=== PATIENT | female | born 1955 | race Caucasian/White ===

== ENCOUNTER → 2017-05-28 07:27 | Outpatient (CLI) | payer SELFPAY ==
--- NOTE | 2017-05-28 07:31 | HPBI_ITS ---
MAMMOGRAPHY - BILATERAL SCREENING REASON FOR EXAM: Female, 61 years old. Routine annual screening examination. PERTINENT HISTORY: Non-contributory. TECHNIQUE: Digital bilateral breast mauricio (3D mammographic acquisition) in the CC and MLO projections. 2-D mediolateral oblique (MLO) and craniocaudad (CC) views of both breasts were obtained. CAD: Full Field Digital Mammography with Computer Added Detection was performed. COMPARISON: Comparison is made with prior examination dated May 16, 2016. FINDINGS: Breast Composition: There are scattered areas of fibroglandular density. There is a 6.1 mm x 4.9 mm well-defined nodule in the mid deep mid slightly inferior portion of the right breast. Correlation with ultrasound is recommended. No clustered microcalcification is seen. No other significant abnormalities are identified. HPBI/SCREENING MAMM (CAD), BILAT IMPRESSION: 6.1 mm x 4.9 mm well-defined nodule in the deep portion of the right breast as described. Correlation with ultrasound is recommended. ASSESSMENT CATEGORY: BIRADS Category 0: Incomplete. Need additional imaging evaluation. A letter regarding these results will be sent to the patient by the facility within 30 days. Approximately 10% of breast cancers are not detected by mammography. A normal mammogram should not delay biopsy of a clinically suspicious abnormality. [id number] Electronically Signed: Cash Moreno MD at 10:56 EDT Tel [phone], Service support ,
== END ==
PROVIDERS: Family Provider Family Medicine; PCP Family Medicine; Visit Provider Family Medicine
DX: Z12.31 Encounter for screening mammogram for malignant neoplasm of breast (principal)
CPT/HCPCS: 77063; 77067

== ENCOUNTER → 2017-05-31 09:49 | Outpatient (CLI) | payer SELFPAY ==
--- NOTE | 2017-05-31 09:54 | US_ITS ---
STUDY: ULTRASOUND BREAST - RIGHT REASON FOR EXAM: Female, 61 years old. Abnormal screening mammogram. TECHNIQUE: Axial and longitudinal images of the RIGHT breast were performed with a high resolution ultrasound transducer. COMPARISON: Comparison is made with prior mammogram dated May 28, 2017. FINDINGS: RIGHT Breast: The entire right breast was examined by ultrasound. There is homogeneous fibroglandular tissue. No solid or cystic mass lesion is seen. Mild degree of the retroareolar ductal dilatation. Additional mammographic views will be obtained. US/Breast Limited Unilateral IMPRESSION: Unremarkable sonographic examination of the breast. Additional mammographic views will be obtained. ASSESSMENT CATEGORY: BIRADS Category 0: Incomplete. Need additional imaging evaluation. A letter regarding these results will be sent to the patient by the facility within 30 days. Electronically Signed: Cash Moreno MD at 10:58 EDT Tel [phone], Service support ,
--- NOTE | 2017-05-31 10:23 | HPBI_ITS ---
MAMMOGRAPHY - UNILATERAL DIAGNOSTIC: RIGHT BREAST REASON FOR EXAM: Female, 61 years old. Questionable asymmetrical density in the right breast. PERTINENT HISTORY: Non-contributory. TECHNIQUE: Compression spot views of the right breast in the mediolateral oblique and craniocaudad views were obtained. 90 degree lateral view was obtained as well. CAD: Full Field Digital Mammography with Computer Added Detection was performed. COMPARISON: Comparison is made with prior study dated May 28, 2017. FINDINGS: The previously seen possible nodular density in the right mid breast most likely represents superimposition of tissue. No definite nodule is seen at this time. HPBI/DIAG MAMM W/CAD, UNILAT IMPRESSION: Stable unilateral diagnostic mammogram. One year follow-up mammogram recommended. (A) ASSESSMENT CATEGORY: BIRADS Category 2: Benign. A letter regarding these results will be sent to the patient by the facility within 30 days. Approximately 10% of breast cancers are not detected by mammography. A normal mammogram should not delay biopsy of a clinically suspicious abnormality. Electronically Signed: Cash Moreno MD at 15:55 EDT Tel [phone], Service support ,
== END ==
PROVIDERS: Family Provider Family Medicine; PCP Family Medicine; Visit Provider Family Medicine
DX: N63.0 Unspecified lump in unspecified breast (principal)
CPT/HCPCS: 76642; 77065

== ENCOUNTER → 2018-01-14 16:13 | Outpatient (CLI) | payer SELFPAY ==
[2018-01-18 12:30] LABS: HPV APTIMA, High Risk Negative (Negative)
== END ==
LOC: LAB 16:16 → LABSPEC 16:16
PROVIDERS: Family Provider Family Medicine; PCP Family Medicine; Referring Provider Nurse Practitioner Women's Health; Visit Provider Nurse Practitioner Women's Health
DX: Z12.4 Encounter for screening for malignant neoplasm of cervix (principal)
CPT/HCPCS: 87624; 88175; G0145

== ENCOUNTER → 2018-06-17 08:05 | Outpatient (CLI) | payer SELFPAY ==
--- NOTE | 2018-06-17 08:14 | BI_ITS ---
MAMMOGRAPHY - BILATERAL SCREENING REASON FOR EXAM: Female, 62 years old. Routine annual screening examination. PERTINENT HISTORY: Non-contributory. TECHNIQUE: Digital bilateral breast harriet (3D mammographic acquisition) in the CC and MLO projections. 2-D mediolateral oblique (MLO) and craniocaudad (CC) views of both breasts were obtained. CAD: Full Field Digital Mammography with Computer Added Detection was performed. COMPARISON: Comparison is made with prior examination dated October 28, 2017 and May 16, 2016. FINDINGS: Breast Composition: There are scattered areas of fibroglandular density. Once again, there is a 5 mm x 6 mm well-defined nodule in the central slightly inferior deep portion of the right breast. On prior sonogram this was not well visualized. A repeat sonogram is recommended for further evaluation. No other significant abnormalities are identified. There has been no significant change since the prior study. BI/SCREEN MAMM (CAD) W/HARRIET BILAT IMPRESSION: Stable subcentimeter nodule in the right breast as described. Correlation with a repeat ultrasound is recommended. ASSESSMENT CATEGORY: BIRADS Category 0: Incomplete. Need additional imaging evaluation. A letter regarding these results will be sent to the patient by the facility within 30 days. Approximately 10% of breast cancers are not detected by mammography. A normal mammogram should not delay biopsy of a clinically suspicious abnormality. [id number] Electronically Signed: Cash Moreno, at 9:24 EDT , Service support ,
--- NOTE | 2018-06-17 15:20 | US_ITS ---
STUDY: ULTRASOUND BREAST - RIGHT REASON FOR EXAM: Female, 62 years old. Abnormal screening mammogram. TECHNIQUE: Axial and longitudinal images of the RIGHT breast were performed with a high resolution ultrasound transducer. COMPARISON: Comparison is made with prior screening mammogram done earlier in the day. Comparison is also made with prior sonogram of the right breast dated May 31, 2017. FINDINGS: RIGHT Breast: The entire lateral aspect of the right breast was examined by ultrasound. There is evidence of dilated ducts. Additional mammographic views of the right breast will be obtained. US/Breast Limited Unilateral IMPRESSION: Dilated retroareolar ducts. Compression mammographic views of the right breast will be obtained. ASSESSMENT CATEGORY: BIRADS Category 0: Incomplete. Need additional imaging evaluation. A letter regarding these results will be sent to the patient by the facility within 30 days. Electronically Signed: Cash Moreno, at 8:39 EDT , Service support ,
--- NOTE | 2018-06-17 15:42 | BI_ITS ---
MAMMOGRAPHY - UNILATERAL DIAGNOSTIC: RIGHT BREAST REASON FOR EXAM: Female, 62 years old. Nodular density in the right breast. PERTINENT HISTORY: Non-contributory. TECHNIQUE: Compression spot views of the right breast nodule were obtained. CAD: Full Field Digital Mammography with Computer Added Detection was performed. COMPARISON: Comparison is made with prior mammogram and prior ultrasound in earlier in the day. FINDINGS: Breast Composition: There are scattered areas of fibroglandular density. Persistent 5 mm x 6 mm well-defined nodule in the central slightly inferior aspect of the right breast. This was not identified on the ultrasound. A biopsy is recommended for further evaluation. No other significant abnormalities are identified. BI/DIAG MAMM W/CAD, UNILAT IMPRESSION: Persistent 5 mm x 6 mm well-defined nodule in the central slightly inferior portion of the right breast as described. A biopsy is recommended. ASSESSMENT CATEGORY: BIRADS Category 4: Suspicious - Biopsy Should Be Considered. A letter regarding these results will be sent to the patient by the facility within 30 days. Approximately 10% of breast cancers are not detected by mammography. A normal mammogram should not delay biopsy of a clinically suspicious abnormality. Electronically Signed: Cash Moreno, at 10:34 EDT , Service support ,
== END ==
PROVIDERS: Family Provider Family Medicine; PCP Family Medicine; Referring Provider Nurse Practitioner Women's Health; Visit Provider Nurse Practitioner Women's Health
DX: Z12.31 Encounter for screening mammogram for malignant neoplasm of breast (principal); R92.8 Other abnormal and inconclusive findings on diagnostic imaging of breast
CPT/HCPCS: 76642; 77063; 77065; 77067

== ENCOUNTER → 2018-07-18 | Outpatient (CLI) | payer SELFPAY ==
[2018-06-27 13:10] VITALS: BMI 28.3
--- NOTE | 2018-07-18 08:15 | BRBX_PTH ---
PATIENT: EZEKIEL BLANC LOC: [facility] U#:[id number] AGE/SX: 62/F ROOM: RE07/18/[address]: Dr. Miguel Magallanes MD : 1955 BED: DIS: 07/18/2018 SPEC #: [id number] RECD: 07/18/18 08:59 STATUS: OTIS HAILEY #: [id number] ADELINE: 07/18/18 08:[address]: Miguel Magallanes DEPT: SURGICAL PATHOLOGY RECD BY: Shai Betancourt ENTERED: 07/18/18 11:27 SP TYPE: BREAST BX OTHR DR: Dr. Doug Mcmullen, Tissues: Right breast, NOS Procedures: Surgery Specimen Level IV HEADER OPERATION: Right breast stereotactic biopsy PRE-OP DIAGNOSIS: Right breast mass central slightly inferior TISSUE SUBMITTED: Right breast core tissue ISCHEMIC TIME: 1 minute FIXATION TIME: 11 hours MICROSCOPIC DIAGNOSIS Right breast mass, stereotactic core biopsy: Hyalinized fibroadenoma. Negative for atypia or malignancy. NATIVIDAD:eusebio 07/19/18 MICROSCOPIC DESCRIPTION Slides are reviewed. GROSS DESCRIPTION Received is one container labeled with the patient's name and not further designated. The specimen consists of multiple elongated fragments of scruggs-yellow fibroadipose tissue that in aggregate measure 4 x 3 x 0.3 cm. The entire specimen is submitted in two cassettes. / NATIVIDAD:eusebio 07/18/18 TC:1 CPT: 63616
--- NOTE | 2018-07-18 09:05 | PCM.OPRPT ---
Problem List (1) Breast mass, right Status: Acute Report of Operation Date of Procedure: 07/18/18 Pre-Operative Diagnosis: Right breast nodule Post-Operative Diagnosis: Same Surgery/Procedure Performed:: Stereotactic guided right breast core needle biopsy placement of clip Specimen's removed: Right breast biopsy Description of Procedure: The patient was placed on the stereotactic table and the right breast was brought through the opening. The right breast was compressed and images were taken in the lesion was localized. Stereotactic images were taken and the coordinates were placed into the computer. Next the breast was prepped with Betadine and anesthetized with lidocaine. A small kiet was made with a scalpel and an 8 gauge mammotome needle was placed into the breast and deployed. Stereotactic images were obtained and then biopsies were obtained. Next a titanium clip was placed into the biopsy cavity and the needle was removed. Pressure was held in the breast and a Steri-Strip and bandage were placed in the breast and patient was supplied with a ice pack. Patient tolerated the biopsy well.
== END | disposition home or self-care (01) ==
PROVIDERS: Family Provider Family Medicine; PCP Family Medicine; Referring Provider Surgery; Visit Provider Surgery
DX: D24.1 Benign neoplasm of right breast (principal); I10 Essential (primary) hypertension; Z79.899 Other long term (current) drug therapy
CPT/HCPCS: 19081; 88305; J7050; A4648

== ENCOUNTER → 2019-08-14 08:00 | Outpatient (CLI) | payer MEDICARE, OTHER, SELFPAY ==
[2019-01-15 08:13] VITALS: BMI 28.3
--- NOTE | 2019-08-14 08:02 | BI_ITS ---
MAMMOGRAPHY - BILATERAL SCREENING REASON FOR EXAM: Female, 63 years old. Routine annual screening examination. PERTINENT HISTORY: Non-contributory. Prior right stereotactic breast biopsy. TECHNIQUE: Digital bilateral breast harriet (3D mammographic acquisition) in the CC and MLO projections. 2-D mediolateral oblique (MLO) and craniocaudad (CC) views of both breasts were obtained. CAD: Full Field Digital Mammography with Computer Added Detection was performed. COMPARISON: Comparison is made with prior examination dated June 17, 2018 and May 31, 2017. FINDINGS: Breast Composition: There are scattered areas of fibroglandular density. There are no dominant masses or suspicious calcifications. The previously seen well-defined nodule in the central slightly inferior deep portion of the right breast is not seen at this time. A tissue clip marker is seen at that site. No other significant abnormalities are identified. BI/SCREEN MAMM (CAD) W/HARRIET BILAT IMPRESSION: Status post right breast biopsy with resolution of the subcentimeter nodule in the right breast as described. Yearly follow-up mammogram recommended. (A) ASSESSMENT CATEGORY: BIRADS Category 2: Benign. A letter regarding these results will be sent to the patient by the facility within 30 days. Approximately 10% of breast cancers are not detected by mammography. A normal mammogram should not delay biopsy of a clinically suspicious abnormality. [id number] Electronically Signed: Cash Moreno, at 9:17 EDT , Service support ,
--- OUTSIDE RECORDS SUMMARY | 2019-12-30 18:21 | XMS RPT_ITS | CCD ---
:1955 External Reference #:[id number] Author Organization [facility] Care Team Providers Name Role Phone Osorio, N Unavailable Osorio, N Unavailable Jeanine Otero Unavailable Osorio, N Unavailable Osorio, N Unavailable Osorio, N Unavailable Jeanine Otero Unavailable Osorio, N Unavailable Allergies Reported Allergen Reaction(s) Severity Date of Onset Location penicillin v Critical, Critical [facility] (4 0777) sulfADIAZINE Critical, Critical [facility] (4 7110) Medications Medication Name Sig Date Prescriber Location Metoprolol TOPROL XL 50 MG 10-03-2016 [facility] [id number] daily Sports Medic ine and METOPROLOL Orthop aedics (19215) SUCCINATE [id number] Jessica Otero TOPROL XL 50 MG [id number] daily 10-03-2016 [facility] Sports Medicine METOPROLOL SUCCINATE and Orthopaedics (88357) [id number] Jessica Otero Problems Active Problems Category Problem Name Status Date Location Unclassified Postoperative physical Active 10-24-2016 [facility] Sports examination Medicine and Or thopaedics (41675) Past or Other Problems Category Problem Name Status Date Location Fracture of upper Displaced fracture of Completed 10-03-2016 [facility] limb unspecified ulna Sports Medi cine and styloid process, Orthopaedic s (77698) initial encounter for closed fracture Other aftercare Encounter for other Completed 10-24-2016 [facility] specified surgical Sports Me dicine and aftercare Orthopaedics (4 8143) Other non-traumatic Pain in wrist Completed 10-24-2016 [facility] [place] joint disorders Sports Medic ine and Orthopaedics (4 4207) Results Result Name Value Range Unit Interpretation Flag Date Location office visit on 09-25-16 Documentation of Done Invalid 01-02-2017 - [facility] current medications Interpretation Code 01-02-2017 [place] [facility] (procedure) Medicine and Orthopaedi cs (80591) Protein mass conc Done Invalid 01-02-2017 - [facility] Interpretation Code 01-02-2017 [place] [facility] a [facility] Orthopa[facility] cs (75054) Tobacco smoking Never Invalid 01-02-2017 - [facility] status NHIS smoker Interpretation Code 01-03-20 [place] [facility] a [facility] Orthopa[facility] cs (68974) Tobacco use CPHS Never Invalid 01-02-2017 - [facility] smoker Interpretation Code 01-02-2017 [place] [facility]opa[facility] (85945) office visit on 09-24-04 Documentation of Done Invalid 11-21-2016 - [facility] current medications Interpretation Code 11-21-2016 [place] [facility] (procedure) Medicine and Orthopaedi cs (55782) Protein mass conc Done 11-21-2016 - [facility] 11-21-2016 [place] [facility] or[facility] Medicine a nd Orthopaedi cs (43559) Tobacco smoking Never 11-21-2016 - [facility] status NHIS smoker 11-21-2016 [place] [facility] Orthopa[facility] (01105) Tobacco use CPHS Never Invalid 11-21-2016 - [facility] smoker Interpretation Code 11-21-2016 [place] [facility] Orthopa[facility] cs (30557) office visit on 201 09-24-07 Documentation of Done Invalid 10-24-2016 - [facility] current medications Interpretation Code 10-24-2016 [place] [facility] (procedure) Medicine and Orthopaedi cs (62799) Protein mass conc Done 10-24-2016 - [facility] 10-24-2016 [place] [facility] Medicine a nd Orthopaedi cs (52168) Tobacco smoking Never 10-24-2016 - [facility] status NHIS smoker 10-24-2016 [place] [facility] Orthopa[facility] (80464) Tobacco use CPHS Never Invalid 10-24-2016 - [facility] smoker Interpretation Code 10-24-2016 [place] [facility] a [facility] Orthopaedi cs (98932) office visit on 09-22-17 Documentation of Done Invalid 10-03-2016 [facility] Medical current medications Interpretation Code 10-03-2016 [place] [facility] (procedure) Medicine and Orthopaedi cs (30679) Protein mass conc Done 10-03-2016 - [facility] 10-03-2016 [place] Sp orts Medicine a nd Orthopaedi cs (01841) Tobacco smoking Never 10-03-2016 - [facility] status NHIS smoker 10-03-2016 [place] [facility] a [facility] Orthopaedi cs (23630) Tobacco use CPHS Never Invalid 10-03-2016 [facility] Medical smoker Interpretation Code 10-03-2016 [place] [facility] Medicine a nd Orthopaedi cs (68466) Vital Signs Vital Sign Description Value / Unit Date Location The following section is limited to 5 en tries per type and includes entries from the following time range: 20161003 - [id number] 8. BMI (Body Mass Index) 28.69 kg/m2 10-03-2016 - 10-03-2016 [facility] Sports Medicine and Ort hopaedics (04276) Height 160.02 cm 10-03-2016 - 10-03-2016 [facility] Sports Medicine and Ort hopaedics (23672) Weight 73.48 kg 10-03-2016 - 10-03-2016 [facility] Sports Medicine and Ort hopaedics (30729) Plan of Treatment Plan Description Date Location Appointment Appointment 01-12-2017 - [facility] er 01-12-2017 Sports Medicine and Orthopaedics (44 691) Appointment Appointment 01-02-2017 - [facility] er 01-02-2017 Sports Medicine and Orthopaedics (44 691) Appointment Appointment 11-21-2016 - [facility] er 11-21-2016 Sports Medicine and Orthopaedics (44 691) Occupational Therapy no information 11-08-2016 [facility] General Rehab Services, 11-08-2016 Sports M edicine and [facility], Orthopae dics ([address]) [place], [address] Occupational Therapy Occupational Therapy 11-08-2016 [facility] General Re[facility], General Rehab Services, 11-08-2016 Sports Medicine and [address] [facility], Orthopaedics ([address]) [place], [address] [place], [address] + + X-Ray, Wrist X-Ray, Wrist 10-24-2016 - [facility] 10-24-2016 Sports Medicine and Orthopaedics (44 691) Appointment Appointment 10-24-2016 - [facility] 10-24-2016 Sports Medicine and Orthopaedics (44 691) X-Ray, Wrist X-Ray, Wrist 10-24-2016 - [facility] 10-24-2016 Sports Medicine and Orthopaedics (44 691) Appointment Appointment 10-03-2016 - [facility] 10-03-2016 Sports Medicine and Orthopaedics (44 691) Additional Source Comments FOR RECORDS PERTAINING TO PATIENTS WHO ARE OR HAVE BEEN ENROLLED IN A CHEMICAL DEPENDENCY/SUBSTANCE ABUSE PROGRAM, SOME INFORMATION MAY BE OMITTED. This clinical summary was aggregated from multiple sources. Caution should be exercised in using it in the provision of clinical care. This summary normalizes information from multiple sources, and as a consequence, information in this document may materially changethe coding, format and clinical context of patient data. In addition, data may be omittedin some cases. CLINICAL DECISIONS SHOULD BE BASED ON THE PRIMARY CLINICAL RECORDS. [facility] provides no warranty or guarantee of the accuracy or completeness of information in this document.
== END ==
PROVIDERS: PCP Family Medicine; Referring Provider Nurse Practitioner Women's Health; Visit Provider Nurse Practitioner Women's Health
DX: Z12.31 Encounter for screening mammogram for malignant neoplasm of breast (principal)
CPT/HCPCS: 77063; 77067

== ENCOUNTER → 2019-09-15 08:19 | Outpatient (CLI) | payer MEDICARE, OTHER, SELFPAY ==
[2019-01-15 08:13] VITALS: BMI 28.3
[2019-09-15 09:55] LABS: Absolute Lymphocyte Count 1.72 X10^3/uL (0.83-4.51); Absolute Neutrophil Count 4.2 X10^3/uL (2.0-7.7); Basophil# 0.06 X10^3/uL; Basophil% 0.9 % (0-1); Eosinophil# 0.26 X10^3/uL; Eosinophils% 3.9 % (0-5); Hemoglobin 14.2 g/dL (12.0-15.0); Lymphocyte # 1.72 X10^3/ul (4.0); Lymphocyte % 25.6 % (19-41); Mean Corp Hgb Conc 31.6 g/dL (32-36); Mean Corpuscular Hgb 28.7 pg (27.0-32.0); Mean Corpuscular Volume 90.9 fL (81-99); Mean Platelet Vol. 10.6 fl (6.2-12.0); Monocyte# 0.46 X10^3/uL; Monocyte% 6.8 % (0-10); NRBC Flagged by Analyzer 0 % (0-5); Neutrophil # 4.21 X10^3/uL (2.7-7.7); Neutrophil % 62.7 % (47-70); Platelet Count 207 K/mm3 (150-450); RBC Distribution Width SD 42.4 fl (35.1-43.9); Red Blood Count 4.95 M/mm3 (4.2-5.4); White Blood Count 6.7 K/mm3 (4.4-11.0)
[2019-09-15 10:13] LABS: ALB/GLOB Ratio 1.1 RATIO (0.9-2.4); AST(SGOT) 18 U/L (15-37); Alanine Aminotransfer ALT/SGPT 20 U/L (13-56); Albumin, Serum 3.8 g/dL (3.2-5.0); Alkaline Phosphatase 89 U/L (45-117); Anion Gap 5 (5-15); BUN 9 mg/dL (7-18); BUN/Creat Ratio 14.5 RATIO (10-20); Chloride 105 mmol/L (98-107); Cholesterol 239 mg/dL (200); Creatinine, Serum 0.62 mg/dL (0.55-1.02); EST Glomerular Filtration Rate 102 mL/min (>60); Est Glom Filt Rate - Afr Amer 124 mL/min (>60); Globulin 3.4 g/dL (2.2-4.2); Glucose 104 mg/dL (74-106); High Density Lipoprotein 61 mg/dL; Potassium 4.2 mmol/L (3.5-5.1); Protein, Total 7.2 g/dL (6.4-8.2); Sodium Level 139 mmol/L (136-145); Triglycerides 89 mg/dL; Very Low Density Lipoprotein 18 mg/dL (5-40)
== END ==
PROVIDERS: PCP Family Medicine; Referring Provider Family Medicine; Visit Provider Family Medicine
DX: I10 Essential (primary) hypertension (principal)
CPT/HCPCS: 36415; 80053; 80061; 85025

== ENCOUNTER 2019-10-08 07:37 | Day surgery (SDC) | payer MEDICARE, OTHER, SELFPAY ==
[2019-01-15 08:13] VITALS: BMI 28.3
--- NOTE | 2019-10-08 | COLBX_PTH ---
PATIENT: EZEKIEL BLANC LOC: [facility] U#:[id number] AGE/SX: 63/F ROOM: RE10/08/[address]: Dr. Abigail Price MD : 1955 BED: DIS: 10/08/2019 SPEC #: [id number] RECD: 10/08/19 12:34 STATUS: OTIS REBeryl #: [id number] ADELINE: 10/08/19 00:[address]: Abigail Price DEPT: SURGICAL PATHOLOGY RECD BY: Sabino Longoria ENTERED: 10/08/19 12:34 SP TYPE: COLON BX OTHR DR: Dr. Doug Mcmullen, DO Tissues: A - Rectum, NOS B - Rectum, NOS Procedures: Surgery Specimen Level IV HEADER OPERATION: Colonoscopy - open access (MAC) PRE-OP DIAGNOSIS: Family history of colon cancer TISSUE SUBMITTED: A - Rectal polyps biopsy #1, B - Rectal polyp biopsy #2 MICROSCOPIC DIAGNOSIS A. Rectal polyps, biopsy #1: Tubular adenoma (two fragments). B. Rectal polyp, biopsy #2: Benign colonic mucosa. See comment. AM:eusebio 10/09/19 COMMENT B. Neither hyperplastic nor adenomatous change is identified. Clinical correlation is suggested. MICROSCOPIC DESCRIPTION Slides are reviewed. GROSS DESCRIPTION A - Received in fixative is one container labeled with the patient's name and designated rectal polyp #1 biopsy. The specimen consists of two irregular fragments of light scruggs soft tissue that in aggregate measure 0.5 x 0.2 x 0.1 cm. The specimen is totally submitted in one cassette. B - Received in fixative is one container labeled with the patient's name and designated rectal polyp #2 biopsy. The specimen consists of one irregular fragment of light scruggs soft tissue that measures 0.3 x 0.2 x 0.1 cm. The specimen is totally submitted in one cassette. / SJ:eusebio 10/08/19 TC:5 CPT: 86130 x2
[2019-10-08 07:51] VITALS: BP 152/92; PULSE 81; RESP 15; TEMP 36.8; O2SAT 100; BMI 26.8
--- NOTE | 2019-10-08 07:58 | HP.PCM_ITS ---
History of Present Illness Date of Admission: 10/08/19 The patient is a 63 year old F presents for screening colonoscopy due to family history of colon cancer. Patient's mother was diagnosed with colon cancer in her early her 60s. Patient's last colonoscopy was in 2011 in [place] negative per patient however patient also did a Cologuard about 3 years ago which was also negative. Patient denies any chronic abdominal pain nausea/vomiting/reflux. Patient states she has reflux maybe twice a month if she eats too fast. Patient has bowel movements daily denies any blood Past Medical/Surgical History - Planned Operation Planned Operative Procedure/s: COLONOSCOPY Date of Operative Procedure: 10/08/19 Permit Signed: Yes S.O.S: No Is This Patient Having a Total Joint: No - Previous Hospitalizations/Surgeries HX Hospitalizations: No HX of Surgeries: COLONOSCOPY. ORIF L WRIST 10/02. BREAST BX Any Problems With Anesthesia: Yes - NAUSEA, FELT LIKE PASSING OUT You/Your Family Experience Fever (Hyperthermia) With Anes: No Cholinesterase deficiency: No - Cardiovascular Hx Chest Pain within Last 2 months: No Hx of Irregular Heartbeat and/or Afib: No Hx Heart Attack: No Hx Congestive Heart Failure: No Hx Rheumatic Fever: No Hx Hypertension: Yes - STATES CONTROLLED WITH MEDS Hx Internal Defibrillator: No Hx Pacemaker: No Hx Cardiac Catheterization: No Hx Cardiac Surgery/Stents/Etc.: No Hx Stress Test: Yes - STRESS TEST ~10 YRS AGO. STATES NEG HX Edema: No Hx Pain in Legs when Walking/Leg Cramps: No - Respiratory Chronic Cough: No - SINUS DRAINAGE HX of Shortness of Breath: No Hoarseness: No Hx Chronic Obstructive Pulmonary Disease (COPD): No Hx Asthma: No Hx Emphysema: No Hx Sleep Apnea: No Hx Respiratory Tract Infection/Cold (presently): No Do You Snore Loudly (louder than talking or can be heard): Yes Do You Often Feel Tired/ Fatigued/ Sleepy Dring Daytime?: No Has Anyone Observed You Stop Breathing During Sleep?: No Result (for STOP score): Positive Hx Smoking: No Smoking Status: Never smoker - Gastrointestinal Hx Gastroesophageal Reflux: No Hx Gastrointestinal Disorders: No Hx Gastrointestinal Bleed: No Hx Ulcer: No Hx Hiatal Hernia: No Difficulty Chewing/Swallowing: No Recent Onset of Swallowing Problems: No Special diet followed at home: No Hx Unplanned Weight Loss of 20#: No HX Unplanned Weight Gain of 20#: No - Neurological Hx Seizures: No HX Syncope/Blackout Spells/Unconsciousness: Yes - WITH COLONOSCOPY Hx CVA/Stroke: No Hx Transient Ischemic Attacks (TIA): No Hx Multiple Sclerosis: No Hx Parkinson's Disease: No Hx Head/Neck Injury: Yes - CHILDHOOD HAIRLINE FX Hx Headaches: No Hx Back Injury/Pain: No Recent Onset of Speech Difficulty: No Restless Legs: No Does patient have nerve stimulator: No - Blood Disorder Hx Leukemia: No Bleeding Tendencies: No Hx Deep Vein Thrombosis: No Hx High Cholesterol: No Blood Transmitted Disease: No Hx Hepatitis: No Hx Cirrhosis: No Hx Anemia: No Hx Blood Disorders: No - Reproduction : No Is Patient Lactating: No Hx Hysterectomy: No Hx Tubal Ligation: No Are You Post Menopause: Yes - Genitourinary Hx Renal Disease: No - Musculoskeletal Hx Arthritis: Yes - KNEE PAIN Hx Rheumatoid Arthritis: No Hx Gout: No Recent Onset of an Orthopedic Problem: No - Endocrine Hx Diabetes: No Thyroid Disease: No Hx Steroid Therapy: No - Psycho/Social Hx Substance Use: No Hx Alcohol Use: No Hx Anxiety: No Hx Depression: No Mental Illness: No Hx Dementia: No - Miscellaneous Hx Cancer: No Recent Exposure to Contagious Disease: No Active MRSA: No Hx of C-Diff: No Any Loose Teeth: No Allergies Penicillins [PCN] Allergy (Verified 10/08/19 07:44) Swelling rt arm swelling Sulfa (Sulfonamide Antibiotics) Allergy (Verified 10/08/19 07:44) Unknown - Discharge Is Pt Admitted From a [facility], or a Senior Living: No Who Could Help: After D/C, Where Do you Plan to Go: Return Home - From the PAT History Number of Risk Factors: 1 - Physical Exam Vitals/I&O's: Body Mass Index (BMI) 28.3 General: Alert, Oriented x3, Cooperative, No apparent distress Lungs: Normal air movement Cardiovascular: Regular rate Abdomen: Soft, Non Tender, Non-Distended Extremities: No clubbing, No cyanosis, No edema Neurological: Cranial nerves II-XII grossly intact Psych/Mental Status: Normal Affect Assessment/Plan All Active Problems (Last Reviewed 01/15/19 @ 08:13 by Grteel Edwards) Family history of colon cancer in mother (Acute) Breast mass, right (Acute) 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 It is not possible to know either the risk of delaying the surgery or procedure or chance of getting an infection with perfect accuracy, but a joint decision was made between the patient and the surgeon/proceduralist to proceed at this time with the scheduled surgery/procedure as indicated on the consent form. Surgery Risks - Colonoscopy I discussed with the patient the risks of the procedure: Yes Risks Include but are not Limited To: Risks include but are not limited to: Bleeding, perforation requiring further surgery, inability to complete colonoscopy requiring barium enema. Patient no further questions this time.
[2019-10-08] MEDS: Lactated Ringers 1,000 ML 100 ML IV (08:07)
[2019-10-08 09:14] VITALS: BP 140/94; BP 152/92; PULSE 68; RESP 16; TEMP 36.7; O2SAT 100
--- NOTE | 2019-10-08 09:17 | OP.COLON_ITS ---
Patient Name: Jia Khalil Procedure Date: 10/08/2019 8:36 AM Date of : 1955 Age: 63 Procedure: Colonoscopy Indications: Family history of colon cancer in a first-degree relative Providers: Abigail Price MD Referring MD: Doug Mcmullen Medicines: Propofol per Anesthesia Patient Profile: This is a 63 year old female. Last Colonoscopy: 2011. Complications: No immediate complications. Procedure: Pre-Anesthesia Assessment: - Prior to the procedure, a History and Physical was performed, and patient medications and allergies were reviewed. The patient's tolerance of previous anesthesia was also reviewed. The risks and benefits of the procedure and the sedation options and risks were discussed with the patient. All questions were answered, and informed consent was obtained. Prior Anticoagulants: The patient has taken no previous anticoagulant or antiplatelet agents. ASA Grade Assessment: Per anesthesia. After reviewing the risks and benefits, the patient was deemed in satisfactory condition to undergo the procedure. After I obtained informed consent, the scope was passed under direct vision. Throughout the procedure, the patient's blood pressure, pulse, and oxygen saturations were monitored continuously. The Colonoscope was introduced through the anus and advanced to the cecum, identified by the appendiceal orifice, ileocecal valve and palpation. The colonoscopy was performed without difficulty. The patient tolerated the procedure well. The quality of the bowel preparation was good. Scope In: 8:45:35 AM Scope Withdrawal Time 0 hours 16 minutes 31 seconds Scope Out: 9:10:28 AM Total Procedure Duration Time 0 hours 24 minutes 53 seconds Findings: Hemorrhoids were found on perianal exam. A less than 5 mm polyp was found in the rectum. The polyp was sessile. The polyp was removed with a cold biopsy forceps. Resection and retrieval were complete. An area of mildly bluish colored mucosa was found in the rectum. Biopsies were taken with a cold forceps for histology. Impression: - Hemorrhoids found on perianal exam. - One less than 5 mm polyp in the rectum, removed with a cold biopsy forceps. Resected and retrieved. - Bluish colored mucosa in the rectum. Biopsied. Recommendation: - Discharge patient to home. - Resume previous diet. - Continue present medications. - Await pathology results. - Repeat colonoscopy in 3 - 5 years for surveillance based on pathology results. Procedure Code(s): --- Professional --- 51899, PT, Colonoscopy, flexible; with biopsy, single or multiple Diagnosis Code(s): --- Professional --- K64.9, Unspecified hemorrhoids K62.1, Rectal polyp Z80.0, Family history of malignant neoplasm of digestive organs CPT copyright 2017 [employer]. All rights reserved. The codes documented in this report are preliminary and upon company pilot review may be revised to meet current compliance requirements. MD Abigail Leblanc MD 10/08/2019 9:16:39 AM This report has been signed electronically. Number of Addenda: 0 Note Initiated On: 10/08/2019 8:36 AM
--- NOTE | 2019-10-08 09:17 | OP.CCLET_ITS ---
10/08/2019 Doug Mcmullen [address] [place] [address] Re : Colonoscopy procedure for Jia Khalil Dear Dr. Mcmullen This procedure was performed on Tuesday, October 08, 2019. My impressions and recommendations are as follows: Impressions : - Hemorrhoids found on perianal exam. - One less than 5 mm polyp in the rectum, removed with a cold biopsy forceps. Resected and retrieved. - Bluish colored mucosa in the rectum. Biopsied. Recommendations : - Discharge patient to home. - Resume previous diet. - Continue present medications. - Await pathology results. - Repeat colonoscopy in 3 - 5 years for surveillance based on pathology results. My findings are described in the full procedure note, which is enclosed. If I can be of further assistance, please feel free to contact me at Doctor phone number(s): , Work: . Sincerely, MD Abigail Leblanc MD 10/08/2019 9:16:39 AM This report has been signed electronically.
[2019-10-08 09:20] VITALS: BP 137/84; BP 152/92; PULSE 71; RESP 16; O2SAT 97
[2019-10-08 09:25] VITALS: BP 132/83; BP 152/92; PULSE 62; RESP 16; O2SAT 100
[2019-10-08 09:30] VITALS: BP 130/86; BP 152/92; PULSE 56; RESP 16; TEMP 36.6; O2SAT 100
[2019-10-08 09:51] VITALS: BP 152/92
== END 2019-10-08 09:52 | disposition home or self-care (01) ==
LOC: EN 07:37 → AC 07:38
PROVIDERS: PCP Family Medicine; Referring Provider Family Medicine; Visit Provider Surgery
PROC: 0DJD8ZZ Inspection of Lower Intestinal Tract, Via Natural or Artificial Opening Endoscopic (ICD-10-PCS; CPT 45378; principal; 2019-10-08 08:40)
DX: Z12.11 Encounter for screening for malignant neoplasm of colon (principal); D12.8 Benign neoplasm of rectum; K64.9 Unspecified hemorrhoids; I10 Essential (primary) hypertension; Z80.0 Family history of malignant neoplasm of digestive organs; Z79.899 Other long term (current) drug therapy
CPT/HCPCS: 45380; 87635; 88305; G2023; J7120; J2405; U0003

== ENCOUNTER → 2020-05-19 13:19 | Outpatient (CLI) | payer MEDICARE, OTHER, SELFPAY ==
[2020-01-22 10:08] VITALS: BMI 28.2
--- NOTE | 2020-05-19 13:24 | RAD_ITS ---
STUDY: X-RAY - CERVICAL SPINE REASON FOR EXAM: Female, 64 years old. right side neck pain TECHNIQUE: 7 view(s) of the cervical spine were obtained. COMPARISON: None FINDINGS: Normal anterior atlantoaxial articulation. Normal odontoid process. Minimal retrolisthesis C5 on C6. Normal vertebral bodies and endplates. Disc space narrowing C5-C6 and C6-C7. Neural foramina narrowing on the left at C5-C6. The soft tissue structures are unremarkable. RAD/Cerv Spine 4 or 5 Views IMPRESSION: Degenerative changes of the lower cervical spine, most prominent at C5-C6. No fracture identified. Electronically Signed: Johnathan Duran MD at 4:24 EST , Service support ,
== END ==
PROVIDERS: PCP Family Medicine; Referring Provider Family Medicine; Visit Provider Family Medicine
DX: M54.2 Cervicalgia (principal)
CPT/HCPCS: 72050

== ENCOUNTER → 2020-07-26 10:13 | Outpatient (CLI) | payer MEDICARE, OTHER, SELFPAY ==
[2020-01-22 10:08] VITALS: BMI 28.2
--- NOTE | 2020-07-26 10:18 | RAD_ITS ---
STUDY: X-RAY - RIGHT HAND REASON FOR EXAM: Right hand pain in the region of the proximal metacarpals, right hand injury from a fall yesterday. TECHNIQUE: 3 view(s) of the hand. COMPARISON: None. FINDINGS: Normal radiocarpal articulation. Normal distal radioulnar joint. There is a small cyst in the ulnar styloid process. Normal visualized carpal bones. Normal carpal articulations Normal carpometacarpal articulation of the thumb. Normal second through fifth carpometacarpal joints. Normal metacarpi. Normal metacarpophalangeal joint of the thumb. Normal interphalangeal joint of the thumb. Normal proximal and distal phalanges of the thumb. Normal metacarpophalangeal joints of the second through fifth fingers. Normal proximal and distal interphalangeal joints of the second through fifth fingers. Normal phalanges of the second through fifth fingers. The soft tissue structures are unremarkable. RAD/Hand Min 3 Views IMPRESSION: Unremarkable x-ray examination of the right hand. Electronically Signed: Sudeep Huffman MD at 14:34 EDT Tel , Service support ,
--- NOTE | 2020-07-26 10:18 | RAD_ITS ---
ACR Level 3 findings have been noted. An addendum which confirms receipt of the report will follow. STUDY: X-RAY - RIGHT FOOT CLINICAL: Lateral right foot pain and swelling, right foot injury from a fall yesterday. TECHNIQUE: 3 view(s) of the foot. COMPARISON: None. FINDINGS: There is a small plantar calcaneal enthesophyte. Normal visualized subtalar, talonavicular, calcaneocuboid, tarsal and tarsometatarsal articulations. There is a nondisplaced transverse fracture of the fifth metatarsal base. Normal metatarsophalangeal joint of the great toe. Normal tibial and fibular sesamoid bones. Normal interphalangeal joint of the great toe. Normal phalanges of the great toe. Normal second through fifth metatarsophalangeal joints. Normal interphalangeal joints and phalanges of the lesser toes. The soft tissue structures are unremarkable. RAD/Foot min 3 Views IMPRESSION: Fracture of the fifth metatarsal base. Electronically Signed: Sudeep Huffman MD at 14:43 EDT Tel , Service support ,
== END ==
PROVIDERS: PCP Family Medicine; Referring Provider Family Medicine; Visit Provider Family Medicine
DX: M79.641 Pain in right hand (principal); M79.671 Pain in right foot
CPT/HCPCS: 73130; 73630

== ENCOUNTER → 2020-08-17 07:19 | Outpatient (CLI) | payer MEDICARE, OTHER, SELFPAY ==
[2020-01-22 10:08] VITALS: BMI 28.2
--- NOTE | 2020-08-17 07:21 | BI_ITS ---
MAMMOGRAPHY - BILATERAL SCREENING REASON FOR EXAM: Female, 64 years old. Routine annual screening examination. PERTINENT HISTORY: Non-contributory. Prior right stereotactic breast biopsy. TECHNIQUE: Digital bilateral breast harriet (3D mammographic acquisition) in the CC and MLO projections. 2-D mediolateral oblique (MLO) and craniocaudad (CC) views of both breasts were obtained. CAD: Full Field Digital Mammography with Computer Added Detection was performed. COMPARISON: Comparison is made with prior study dated 08/14/2019 and 06/17/2018. FINDINGS: Breast Composition: There are scattered areas of fibroglandular density. There are no dominant masses or suspicious calcifications. A tissue clip marker is once again seen in the central mid lateral portion of the right breast. No other significant abnormalities are identified. There has been no significant change since the prior study. BI/SCRN MAMM (CAD)W/HARRIET BILAT IMPRESSION: Stable bilateral screening mammogram. Yearly follow-up mammogram recommended. (A) ASSESSMENT CATEGORY: BIRADS Category 2: Benign. A letter regarding these results will be sent to the patient by the facility within 30 days. Approximately 10% of breast cancers are not detected by mammography. A normal mammogram should not delay biopsy of a clinically suspicious abnormality. [id number] Electronically Signed: Cash Moreno MD at 9:13 EDT , Service support ,
== END ==
PROVIDERS: PCP Family Medicine; Referring Provider Nurse Practitioner Women's Health; Visit Provider Nurse Practitioner Women's Health
DX: Z12.31 Encounter for screening mammogram for malignant neoplasm of breast (principal)
CPT/HCPCS: 77063; 77067

== ENCOUNTER → 2021-08-18 | Outpatient (CLI) | payer BC, SELFPAY ==
--- NOTE | 2021-08-18 07:37 | BI_ITS ---
MAMMOGRAPHY - BILATERAL SCREENING REASON FOR EXAM: Female, 65 years old. Routine annual screening examination. PERTINENT HISTORY: Non-contributory. Prior right stereotactic breast biopsy TECHNIQUE: Digital bilateral breast harriet (3D mammographic acquisition) in the CC and MLO projections. 2-D mediolateral oblique (MLO) and craniocaudad (CC) views of both breasts were obtained. CAD: Full Field Digital Mammography with Computer Added Detection was performed. COMPARISON: Comparison is made with prior study dated 08/17/2020 and 08/14/2019. FINDINGS: Breast Composition: There are scattered areas of fibroglandular density. There are no dominant masses or suspicious calcifications. A tissue clip marker is once again seen in the central mid lateral portion of the No other significant abnormalities are identified. There has been no significant change since the prior study. BI/SCRN MAMM (CAD)W/HARRIET BILAT IMPRESSION: Stable bilateral screening mammogram. Yearly follow-up mammogram recommended. (A) ASSESSMENT CATEGORY: BIRADS Category 2: Benign. A letter regarding these results will be sent to the patient by the facility within 30 days. Approximately 10% of breast cancers are not detected by mammography. A normal mammogram should not delay biopsy of a clinically suspicious abnormality. [id number] Electronically Signed: Cash Moreno MD at 8:44 EDT ,
--- NOTE | 2021-08-18 08:19 | BD_ITS ---
STUDY: DUAL ENERGY X-RAY ABSORPTIOMETRY / DXA REASON FOR EXAM: Female, 65 years old. Z78.0. The patient is postmenopausal. TECHNIQUE: Bone Mineral Density (BMD) measurements of lumbar spine and bilateral hips were obtained. COMPARISON: None. FINDINGS: Lumbar Spine (L1-L4): g/cm2 (0.769) / T-score (-2.5) / Z-score (-0.6) Findings are suggestive of osteopenia with a high fracture risk. Left Femur Total: g/cm2 (0.710) / T-score (-1.9) / Z-score (-0.5) Left Femoral Neck: g/cm2 (0.623) / T-score (-2.0) / Z-score (-0.4) Right Femur Total: g/cm2 (0.704) / T-score (-2.0) / Z-score (-0.6) Right Femoral Neck: g/cm2 (0.571) / T-score (-2.5) / Z-score (-0.8) BD/Dexa Bone Density Study IMPRESSION: The patient is considered osteopenic as outlined below according to World Jimmy Organization (WHO) criteria with a high fracture risk. Reference Information: The T-score is the number of standard deviations above or below the standard which is normal for young adults at their peak bone mineral density. The World Health Organization (WHO) interprets the T-scores as follows: Above -1 Normal bone density Between -1 and -2.5 Osteopenia Equal to / or below -2.5 Osteoporosis As a practical clinical guideline, osteopenia may be graded as follows: Mild -1 through -1.5 Moderate -1.6 through -2.0 Severe -2.1 through -2.4 The Z-score is the number of standard deviations above or below age-matched controls. A Z-score of less than -1.5 would be considered abnormal. References: 1. NIH Osteoporosis and Related Bone Diseases www osteo.org 2. International Society for Clinical Densitometry www iscd.org 3. National Osteoporosis Foundation www nof.org Electronically Signed: Cash Moreno MD at 8:30 EDT ,
== END | disposition home or self-care (01) ==
PROVIDERS: PCP Family Medicine; Visit Provider Nurse Practitioner Women's Health
DX: Z12.31 Encounter for screening mammogram for malignant neoplasm of breast (principal); Z78.0 Asymptomatic menopausal state
CPT/HCPCS: 77063; 77067; 77080

== ENCOUNTER → 2021-08-29 | Outpatient (CLI) | payer MEDICARE, SELFPAY ==
[2021-08-29 10:11] LABS: Absolute Lymphocyte Count 1.71 X10^3/uL (0.83-4.51); Absolute Neutrophil Count 3.3 X10^3/uL (2.0-7.7); Basophil# 0.05 X10^3/uL; Basophil% 0.9 % (0-1); Eosinophil# 0.29 X10^3/uL; Hematocrit 44.7 % (37-47); Hemoglobin 14.3 g/dL (12.0-15.0); Lymphocyte # 1.71 X10^3/ul (0.83-4.51); Lymphocyte % 29.6 % (19-41); Mean Corpuscular Hgb 28.1 pg (27.0-32.0); Mean Corpuscular Volume 87.8 fL (81-99); Mean Platelet Vol. 10.5 fl (6.2-12.0); Monocyte# 0.46 X10^3/uL; NRBC Flagged by Analyzer 0 % (0-5); Neutrophil # 3.25 X10^3/uL (2.7-7.7); Neutrophil % 56.3 % (47-70); Platelet Count 232 K/mm3 (150-450); RBC Distribution Width CV 12.9 % (11.6-14.6); RBC Distribution Width SD 41.9 fl (35.1-43.9); Red Blood Count 5.09 M/mm3 (4.2-5.4); White Blood Count 5.8 K/mm3 (4.4-11.0)
[2021-08-29 10:26] LABS: Vitamin D,25 Hydroxy 39.9 ng/mL
[2021-08-29 10:41] LABS: ALB/GLOB Ratio 1.1 RATIO (0.9-2.4); AST(SGOT) 20 U/L (15-37); Alanine Aminotransfer ALT/SGPT 22 U/L (13-56); Albumin, Serum 3.8 g/dL (3.2-5.0); Alkaline Phosphatase 89 U/L (45-117); Anion Gap 3 (5-15); BUN 9 mg/dL (7-18); BUN/Creat Ratio 12.5 RATIO (10-20); Calcium,Total 9.1 mg/dL (8.5-10.1); Chloride 103 mmol/L (98-107); Cholesterol 266 mg/dL (200); Creatinine, Serum 0.72 mg/dL (0.55-1.02); EST Glomerular Filtration Rate 86 mL/min (>60); Est Glom Filt Rate - Afr Amer 104 mL/min (>60); Globulin 3.5 g/dL (2.2-4.2); Glucose 106 mg/dL (74-106); High Density Lipoprotein 67 mg/dL; Potassium 3.7 mmol/L (3.5-5.1); Protein, Total 7.3 g/dL (6.4-8.2); Sodium Level 137 mmol/L (136-145); Triglycerides 95 mg/dL; Very Low Density Lipoprotein 19 mg/dL (5-40)
== END | disposition home or self-care (01) ==
LOC: MTLAB 08:00
PROVIDERS: PCP Family Medicine; Referring Provider Family Medicine; Visit Provider Family Medicine
DX: Z00.00 Encounter for general adult medical examination without abnormal findings (principal); E55.9 Vitamin D deficiency, unspecified; I10 Essential (primary) hypertension; E78.5 Hyperlipidemia, unspecified
CPT/HCPCS: 36415; 80053; 80061; 82306; 85025

== ENCOUNTER → 2022-01-26 | Outpatient (CLI) | payer MEDICARE, SELFPAY ==
[2022-02-02 15:01] LABS: HPV APTIMA, High Risk Negative (Negative)
== END | disposition home or self-care (01) ==
PROVIDERS: PCP Family Medicine; Visit Provider Nurse Practitioner Women's Health
DX: Z91.89 Other specified personal risk factors, not elsewhere classified (principal)
CPT/HCPCS: 87624; 88175; G0145

== ENCOUNTER 2022-02-06 07:58 | Outpatient (CLI) | payer MEDICARE, SELFPAY ==
[2022-02-06 10:20] LABS: Vitamin D,25 Hydroxy 46.8 ng/mL
[2022-02-08 12:08] LABS: CHOLESTEROL TOTAL 258 mg/dL (100-199); HDL-C 65 mg/dL (>39); HDL-P TOTAL 35.6 umol/L (>=30.5); SMALL LDL-P 352 nmol/L (<=527); TRIGLYCERIDES 98 mg/dL (0-149)
[2022-02-08 14:47] LABS: INSULIN RESISTANCE SCORE 33 (<=45); LDL SIZE 21.8 nm (>20.5); LDL-C (NIH CALC) 176 mg/dL (0-99); LDL-P 1905 nmol/L (<1000)
== END 2022-02-06 23:59 | disposition home or self-care (01) ==
PROVIDERS: PCP Family Medicine; Referring Provider Family Medicine; Visit Provider Family Medicine
DX: I10 Essential (primary) hypertension (principal); E55.9 Vitamin D deficiency, unspecified; E78.5 Hyperlipidemia, unspecified
CPT/HCPCS: 36415; 80061; 82306; 83704

== ENCOUNTER → 2022-08-17 | Outpatient (CLI) | payer MEDICARE, SELFPAY ==
[2022-08-17 10:45] LABS: Absolute Lymphocyte Count 1.69 X10^3/uL (0.83-4.51); Absolute Neutrophil Count 3.9 X10^3/uL (2.0-7.7); Basophil# 0.08 X10^3/uL; Basophil% 1.2 % (0-1); Eosinophil# 0.34 X10^3/uL; Eosinophils% 5.2 % (0-5); Hematocrit 45.2 % (37-47); Hemoglobin 14.6 g/dL (12.0-15.0); Lymphocyte # 1.69 X10^3/ul (0.83-4.51); Lymphocyte % 25.6 % (19-41); Mean Corp Hgb Conc 32.3 g/dL (32-36); Mean Corpuscular Hgb 28.6 pg (27.0-32.0); Mean Corpuscular Volume 88.6 fL (81-99); Mean Platelet Vol. 10.5 fl (6.2-12.0); Monocyte# 0.56 X10^3/uL; Monocyte% 8.5 % (0-10); NRBC Flagged by Analyzer 0 % (0-5); Neutrophil # 3.91 X10^3/uL (2.7-7.7); Neutrophil % 59.3 % (47-70); Platelet Count 233 K/mm3 (150-450); RBC Distribution Width CV 13.1 % (11.6-14.6); RBC Distribution Width SD 42.5 fl (35.1-43.9); White Blood Count 6.6 K/mm3 (4.4-11.0)
[2022-08-17 11:01] LABS: ALB/GLOB Ratio 1.1 RATIO (0.9-2.4); AST(SGOT) 18 U/L (15-37); Alanine Aminotransfer ALT/SGPT 22 U/L (13-56); Albumin, Serum 3.7 g/dL (3.2-5.0); Alkaline Phosphatase 93 U/L (45-117); Anion Gap 7 (5-15); BUN 12 mg/dL (7-18); BUN/Creat Ratio 16.5 RATIO (10-20); Calcium,Total 9.4 mg/dL (8.5-10.1); Chloride 102 mmol/L (98-107); Cholesterol 259 mg/dL (200); Creatinine, Serum 0.73 mg/dL (0.55-1.02); EST Glomerular Filtration Rate 84 mL/min (>60); Est Glom Filt Rate - Afr Amer 102 mL/min (>60); Globulin 3.4 g/dL (2.2-4.2); Glucose 108 mg/dL (74-106); High Density Lipoprotein 71 mg/dL; Protein, Total 7.1 g/dL (6.4-8.2); Sodium Level 137 mmol/L (136-145); Triglycerides 99 mg/dL; Very Low Density Lipoprotein 20 mg/dL (5-40)
== END | disposition home or self-care (01) ==
LOC: MTLAB 08:15
PROVIDERS: PCP Family Medicine; Referring Provider Family Medicine; Visit Provider Family Medicine
DX: I10 Essential (primary) hypertension (principal); E78.5 Hyperlipidemia, unspecified
CPT/HCPCS: 36415; 80053; 80061; 85025

== ENCOUNTER → 2022-08-21 | Outpatient (CLI) | payer MEDICARE, SELFPAY ==
--- NOTE | 2022-08-21 09:29 | BI_ITS ---
MAMMOGRAPHY - BILATERAL SCREENING REASON FOR EXAM: Female, 66 years old. Routine annual screening examination. PERTINENT HISTORY: Non-contributory. History of a right stereotactic breast biopsy. TECHNIQUE: Digital bilateral breast harriet (3D mammographic acquisition) in the CC and MLO projections. 2-D mediolateral oblique (MLO) and craniocaudad (CC) views of both breasts were obtained. CAD: Full Field Digital Mammography with Computer Added Detection was performed. COMPARISON: Comparison is made with prior study dated August 18, 2021 and August 17, 2020. FINDINGS: Breast Composition: There are scattered areas of fibroglandular density. There are no dominant masses or suspicious calcifications. A tissue clip marker is once again seen in the central mid lateral portion of the right breast. No other significant abnormalities are identified. There has been no significant change since the prior study. BI/SCRN MAMM (CAD)W/HARRIET BILAT IMPRESSION: Stable bilateral screening mammogram. Yearly follow-up mammogram recommended. (A) ASSESSMENT CATEGORY: BIRADS Category 2: Benign. A letter regarding these results will be sent to the patient by the facility within 30 days. Approximately 10% of breast cancers are not detected by mammography. A normal mammogram should not delay biopsy of a clinically suspicious abnormality. [id number] Electronically Signed: Cash Moreno MD at 10:55 EDT ,
== END | disposition home or self-care (01) ==
LOC: OPBI 09:28
PROVIDERS: PCP Family Medicine; Referring Provider Nurse Practitioner Women's Health; Visit Provider Nurse Practitioner Women's Health
DX: Z12.31 Encounter for screening mammogram for malignant neoplasm of breast (principal)
CPT/HCPCS: 77063; 77067

== ENCOUNTER → 2022-09-06 | Outpatient (CLI) | payer SELFPAY ==
--- NOTE | 2022-09-06 13:41 | CT_ITS ---
INDICATION: HTN HYPERLIPIDEMIA FMH EXAMINATION: CT CHEST WITHOUT CONTRAST - CT Chest W/O Contrast Injection TECHNIQUE: Axial images were obtained of the chest. A radiation dose optimization technique was used for this scan. IV Contrast dosage and agent: None. COMPARISON: None. FINDINGS: Please note that this is an over read for incidental findings within the included chest. The calcium scoring interpretation is completed separately by the snowmobile mechanic. Please note that assessment is limited as the entirety of the chest is not included in the yvolq-oh-lobl. Assessment is also limited by lack of sagittal or coronal reformatted views. Visualized lungs/pleura: The visualized airways are patent. There is a partially visualized 0.3 cm nodular opacity in the right lung base (5:46). The lungs are otherwise clear. Visualized airways are patent. Visualized mediastinum: Heart size is normal. No pericardial effusion. There is a 1.1 x 2.9 cm oval well-circumscribed cystic lesion along the right anterior heart border (5:29), which likely relates to a pericardial cyst. No definitive lymphadenopathy although assessment is limited without IV contrast. Visualized vasculature: Assessment limited without IV contrast. The aortic root is dilated measuring up to 4.2 cm in diameter. Normal course and caliber of the pulmonary trunk with no aneurysmal dilatation. Visualized upper abdomen: Small hiatal hernia. Bones/soft tissues: Soft tissues are unremarkable. No acute fracture or subluxation. No destructive osseous lesions. CT/Limited Chest CT Cardiac Only IMPRESSION: Please note that this is an old report for incidental findings within the included chest. Calcium score interpretation is completed separately by the snowmobile mechanic. Please also note that assessment is limited as the entirety of the chest is not included in the ryemd-jj-wdhy and lack of sagittal or coronal reformatted images. 1. 0.3 cm nodule opacity in the right lung base may relate to a pulmonary nodule. Further assessment per Fleischner criteria recommended. 2. 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 3. 1.1 x 2.9 cm cystic lesion along the right anterior heart border favors appearance of a pericardial cyst. 4. Small hiatal hernia. Above findings can be further assessed with CT of the chest with contrast. Electronically Signed: Stan Redding DO at 14:40 EDT ,
--- NOTE | 2022-09-07 08:50 | CA.SCORE ---
Calcium Scoring Date of Study:: 09/06/22 Indications Indications: HTN/hyperlipemia Coronary Calcium Scoring: High-resolution Computed Tomographic imaging of the chest was performed on [09/06/22 ], with particular attention paid to the coronary arteries. Images from the examination were analyzed for the presence and extent of coronary artery calcification , using coronary calcium quantification software. The patient tolerated the procedure well and there were no complications. The results of the coronary calcification analysis are provided below. Findings Coronary Artery Left Main (LM): 35 Left Anterior Descending (LAD): 283 Left Circumflex (LCX): 0 Right Coronary Artery (RCA): 0 Total Agatston Score: 318 Percentile Rankin%-90% Calcium Scoring Interpretation: Different methods to categorize the overall amount of coronary plaque. Overall amount CAC SIS Visual of coronary plaque P1 Mild -100 <2 1-2 vessels with mild amount of plaque P2 Moderate 101-300 3-4 1-2 vessels with moderate amount, 3 vessels with mild amount of plaque P3 Severe 301-999 5-7 3 vessels with moderate amount, 1 vessel with severe amount of plaque P4 Extensive >1000 >8 2-3 vessels with severe amount of plaque Calcium Score: Severe: 3 vessels w/moderate amount, 1 vessel w/severe amt of plaque Conclusion: Moderate amount of atherosclerotic plaquing noted.
== END | disposition home or self-care (01) ==
LOC: CT 13:40
PROVIDERS: PCP Family Medicine; Referring Provider Family Medicine; Visit Provider Family Medicine
DX: Z13.6 Encounter for screening for cardiovascular disorders (principal); I10 Essential (primary) hypertension; E78.5 Hyperlipidemia, unspecified
CPT/HCPCS: 75571; 76380

== ENCOUNTER → 2022-09-20 | Outpatient (CLI) | payer MEDICARE, SELFPAY ==
--- NOTE | 2022-09-20 12:33 | STEWCON_ITS ---
Stress Results Protocol: Gabe Protocol WITH DEFINITY Maximum Predicted HR: 152 bpm Target HR: 129 bpm % Maximum Predicted HR: 91 % DurationHeart Rate Stage (mm:ss) (bpm) BP Comment BASELINE 73 152/86 STAGE 1 3:00 131 180/110 STAGE 2 3:00 139 200/110INCREASED SOB, NO C.P RECOVERY 81 148/1022.5 CC DEFINITY FOR ENTIRE TEST Stress Duration: 6:00 mm:ss Maximum Stress HR: 139 bpm Baseline Echocardiogram Findings Stress Echo Wall motion Data Resting WM Intermediate WM Stress WM ECHO/Stress Test Echo W/Contrast Interpretation Summary /Stress echocardiogram. 66-year-old male with a history of coronary artery risk factors. Stress protocol: Resting KG demonstrates normal sinus rhythm with a rate of 78 bpm normal interv als are noted resting blood pressure is 152/86 mmHg. The patient exercised according to the regular B ruce protocol for a total duration of 6 minutes. The maximum heart rate attained was 139 bpm which was 91% of maximum predicted heart rate the maximum workload was 7 metabolic equivalents. Occasion al ventricular and supraventricular ectopic beats were noted. There were no ST or T wave changes n oted suggest ischemia. The peak blood pressure was 200/110 with a rate-pressure product of 2 6,800. Hypertensive response to exercise was noted. The test was terminated due to shortness of aidan ath noted. Stress echocardiogram. Resting and stress echocardiographic images were obtaine d with Definity enhancement. The resting ejection fraction was estimated to be 60% with no wall motion abnormalities noted. At peak exercise there was reduction of the left ventricular cavity size . Wall motion abnormalities were little just difficult to determine. However no obvious wall motion abnormalities were noted. Conclusion: Definity enhanced exercise stress echo with no overt evidence of ischemia. Hypertensive response to exercise. Resting hypertension. Ordering Physician: Doug Mcmullen Referring Physician: Doug Mcmullen Performed By: Leah Bond, RDCS, RVT
== END | disposition home or self-care (01) ==
LOC: CVS 12:32
PROVIDERS: PCP Family Medicine; Referring Provider Family Medicine; Visit Provider Family Medicine
DX: I25.10 Atherosclerotic heart disease of native coronary artery without angina pectoris (principal)
CPT/HCPCS: 93017; 93350; Q9957; A4216; C8928

== ENCOUNTER → 2023-01-29 | Outpatient (CLI) | payer MEDICARE, SELFPAY ==
[2023-02-02 16:09] LABS: HPV APTIMA, High Risk Negative (Negative)
== END | disposition home or self-care (01) ==
LOC: LABSPEC 12:16
PROVIDERS: PCP Family Medicine; Referring Provider Nurse Practitioner Women's Health; Visit Provider Nurse Practitioner Women's Health
DX: Z91.89 Other specified personal risk factors, not elsewhere classified (principal)
CPT/HCPCS: 87624; 88175; G0145

== ENCOUNTER → 2023-08-27 | Outpatient (CLI) | payer MEDICARE, SELFPAY ==
--- NOTE | 2023-08-27 09:39 | BI_ITS ---
MAMMOGRAPHY - BILATERAL SCREENING REASON FOR EXAM: Female, 67 years old. Routine annual screening examination. PERTINENT HISTORY: Aunt with breast cancer. Prior right stereotactic breast biopsy. TECHNIQUE: Digital bilateral breast harriet (3D mammographic acquisition) in the CC and MLO projections. 2-D mediolateral oblique (MLO) and craniocaudad (CC) views of both breasts were obtained. CAD: Full Field Digital Mammography with Computer Added Detection was performed. COMPARISON: Comparison is made with prior study dated August 21, 2022 and August 18, 2021. FINDINGS: Breast Composition: There are scattered areas of fibroglandular density. There are no dominant masses or suspicious calcifications. A tissue clip marker is seen in the central portion of the right breast. No other significant abnormalities are identified. There has been no significant change since the prior study. BI/SCRN MAMM (CAD)W/HARRIET BILAT IMPRESSION: Stable bilateral screening mammogram. Yearly follow-up mammogram recommended. (A) ASSESSMENT CATEGORY: BIRADS Category 2: Benign. A letter regarding these results will be sent to the patient by the facility within 30 days. Approximately 10% of breast cancers are not detected by mammography. A normal mammogram should not delay biopsy of a clinically suspicious abnormality. [id number] Electronically Signed: Cash Moreno MD at 11:13 EDT ,
== END | disposition home or self-care (01) ==
LOC: OPBI 09:39
PROVIDERS: PCP Family Medicine; Referring Provider Nurse Practitioner Women's Health; Visit Provider Nurse Practitioner Women's Health
DX: Z12.31 Encounter for screening mammogram for malignant neoplasm of breast (principal); Z80.3 Family history of malignant neoplasm of breast
CPT/HCPCS: 77063; 77067

== ENCOUNTER → 2023-09-07 | Outpatient (CLI) | payer MEDICARE, SELFPAY ==
[2023-09-07 10:09] LABS: Absolute Lymphocyte Count 1.74 X10^3/uL (0.83-4.51); Absolute Neutrophil Count 3.8 X10^3/uL (2.0-7.7); Basophil# 0.05 X10^3/uL; Basophil% 0.8 % (0-1); Eosinophil# 0.32 X10^3/uL; Hemoglobin 15.1 g/dL (12.0-15.0); Lymphocyte # 1.74 X10^3/ul (0.83-4.51); Lymphocyte % 27.2 % (19-41); Mean Corp Hgb Conc 32.1 g/dL (32-36); Mean Corpuscular Hgb 28.5 pg (27.0-32.0); Mean Corpuscular Volume 88.8 fL (81-99); Monocyte# 0.45 X10^3/uL; NRBC Flagged by Analyzer 0 % (0-5); Neutrophil # 3.83 X10^3/uL (2.7-7.7); Neutrophil % 59.8 % (47-70); Platelet Count 230 K/mm3 (150-450); RBC Distribution Width SD 42.4 fl (35.1-43.9); Red Blood Count 5.29 M/mm3 (4.2-5.4); White Blood Count 6.4 K/mm3 (4.4-11.0)
[2023-09-07 10:40] LABS: Vitamin D,25 Hydroxy 41.6 ng/mL
[2023-09-07 11:11] LABS: ALB/GLOB Ratio 1.1 RATIO (0.9-2.4); AST(SGOT) 20 U/L (15-37); Alanine Aminotransfer ALT/SGPT 21 U/L (13-56); Albumin, Serum 3.9 g/dL (3.2-5.0); Alkaline Phosphatase 99 U/L (45-117); Anion Gap 9 (5-15); BUN 9 mg/dL (7-18); BUN/Creat Ratio 12.1 RATIO (10-20); Calcium,Total 9.2 mg/dL (8.5-10.1); Chloride 102 mmol/L (98-107); Cholesterol 263 mg/dL (200); Creatinine, Serum 0.74 mg/dL (0.55-1.02); EST Glomerular Filtration Rate 82 mL/min (>60); Est Glom Filt Rate - Afr Amer 100 mL/min (>60); Globulin 3.5 g/dL (2.2-4.2); Glucose 108 mg/dL (74-106); High Density Lipoprotein 71 mg/dL; Potassium 3.7 mmol/L (3.5-5.1); Protein, Total 7.4 g/dL (6.4-8.2); Sodium Level 138 mmol/L (136-145); Triglycerides 95 mg/dL; Very Low Density Lipoprotein 19 mg/dL (5-40)
== END | disposition home or self-care (01) ==
LOC: MTLAB 07:56
PROVIDERS: PCP Family Medicine; Referring Provider Family Medicine; Visit Provider Family Medicine
DX: I25.10 Atherosclerotic heart disease of native coronary artery without angina pectoris (principal); I10 Essential (primary) hypertension; M81.0 Age-related osteoporosis without current pathological fracture
CPT/HCPCS: 36415; 80053; 80061; 82306; 85025

== ENCOUNTER → 2023-10-04 | Outpatient (CLI) | payer MEDICARE, SELFPAY ==
--- NOTE | 2023-10-04 12:19 | BD_ITS ---
STUDY: DUAL ENERGY X-RAY ABSORPTIOMETRY / DXA REASON FOR EXAM: Female, 67 years old. M810 TECHNIQUE: Bone Mineral Density (BMD) measurements of lumbar spine and bilateral hips were obtained. COMPARISON: Comparison is made with prior study August 18, 2021. FINDINGS: Lumbar Spine (L1-L4): g/cm2 (0.741) / T-score (-2.8) / Z-score (-0.7) Findings are suggestive of osteoporosis with a high fracture risk. Left Femur Total: g/cm2 (0.714) / T-score (-1.9) / Z-score (-0.4) Left Femoral Neck: g/cm2 (0.635) / T-score (-1.9) / Z-score (-0.1) Right Femur Total: g/cm2 (0.659) / T-score (-2.3) / Z-score (-0.8) Right Femoral Neck: g/cm2 (0.605) / T-score (-2.2) / Z-score (-0.4) The T-Scores on the most recent prior examination were: Lumbar Spine (L1-L4): There has been worsening of bone density since the previous examination. Left Femur Total: which represents an improvement of 0.5%. Right Femur Total: which represents a worsening of 6.4%. BD/Dexa Bone Density Study IMPRESSION: The patient is considered osteopenic as outlined below according to World Jimmy Organization (WHO) criteria with a high fracture risk. There has been worsening of bone density since the previous examination. Reference Information: The T-score is the number of standard deviations above or below the standard which is normal for young adults at their peak bone mineral density. The World Health Organization (WHO) interprets the T-scores as follows: Above -1 Normal bone density Between -1 and -2.5 Osteopenia Equal to / or below -2.5 Osteoporosis As a practical clinical guideline, osteopenia may be graded as follows: Mild -1 through -1.5 Moderate -1.6 through -2.0 Severe -2.1 through -2.4 The Z-score is the number of standard deviations above or below age-matched controls. A Z-score of less than -1.5 would be considered abnormal. References: 1. NIH Osteoporosis and Related Bone Diseases www osteo.org 2. International Society for Clinical Densitometry www iscd.org 3. National Osteoporosis Foundation www nof.org Electronically Signed: Cash Moreno MD at 8:47 EDT ,
== END | disposition home or self-care (01) ==
LOC: OPBD 12:12
PROVIDERS: PCP Family Medicine; Referring Provider Family Medicine; Visit Provider Family Medicine
DX: M81.0 Age-related osteoporosis without current pathological fracture (principal)
CPT/HCPCS: 77080

== ENCOUNTER 2023-11-14 08:49 | Day surgery (SDC) | payer MEDICARE, SELFPAY ==
[2023-11-14] VITALS (7 sets, daily range): BP systolic 145–171; BP diastolic 82–116; PULSE 59–88; RESP 16–18; TEMP 36.2–36.3; O2SAT 96–100; BMI 26.9
--- NOTE | 2023-11-14 09:17 | PRE.ANES_ITS ---
ASA Classification* ASA Classification ASA Classification: 2 Assessment & Plan Anesthesia* Anesthesia Assessment Anesthesia Assessment: Discussed sedation and/or anesthesia options, risks, benefits, and alternatives with patient/parents/legal guardian/POA. Questions invited. The patient/parents/legal guardian/POA seems to understand and agrees to proceed with anesthesia plan. Reviewed the physical assessment, medical history, allergy history and patient home medications list prior to surgery/procedure/anesthetic and documented any changes. Performed airway and anesthesia risk assessments. Anesthesia Type Anesthesia Type: MAC Anesthesia Focused Assessment* Airway Assessment Mouth opens: >3 cm Mallampati Score: II Focused Labs Anesthesia Preop lab: CBC WBC 6.4 K/mm3 (4.4-11.0) 09/07/23 07:59 RBC 5.29 M/mm3 (4.2-5.4) 09/07/23 07:59 Hgb 15.1 g/dL (12.0-15.0) H 09/07/23 07:59 Hct 47.0 % (37-47) 09/07/23 07:59 Plt Count 230 K/mm3 (150-450) 09/07/23 07:59 CHEMISTRY Potassium 3.7 mmol/L (3.5-5.1) 09/07/23 07:59 Sodium 138 mmol/L (136-145) 09/07/23 07:59 BUN 9 mg/dL (7-18) 09/07/23 07:59 Creatinine 0.74 mg/dL (0.55-1.02) 09/07/23 07:59 Glucose 108 mg/dL (74-106) H 09/07/23 07:59 COAG Pre-Assessment Diagnosis/Proposed Procedure Planned Operative Procedure(s): COLONOSCOPY-OA Anesthesia History 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 When Was Last Pacemaker Check QUESTION #4 FULL TEXT: You/Your Family Experience fever (hyperthermia) with Anesthesia Last Oral Intake Last Oral intake: Last Oral Intake NPO since Meds taken in AM with sips of water? 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 - transportation technician Female Yes 11/09/23 15:31 HX of Motion Sickness No 11/09/23 15:31 HX of N/V After Surgery No 11/09/23 15:31 Non-Smoker Yes 11/09/23 15:31 Duration of Surgery greater No 11/09/23 15:31 than 60 minutes Number of Risk Factors 2 11/09/23 15:31 PONV Score Moderate Risk 11/09/23 15:31 Height & Weight Height & Weight: Anesthesia: Height & Weight Height 5 ft 4 in 09/25/23 10:05 Respiratory Assessment Respiratory Assessment - transportation technician: Respiratory Tract Infection Hx - transportation technician Hx Respiratory Tract Infection No 11/09/23 15:31 STOP Sleep Apnea STOP Sleep Apnea - transportation technician: STOP Sleep Apnea - transportation technician Hx Hypertension Yes: STATES CONTROLLED WITH 11/09/23 15:31 MEDS Hx Sleep Apnea No 11/09/23 15:31 CPAP BIPAP Do you snore loudly (louder No 11/09/23 15:31 than talking or can be heard Do you often feel tired/ No 11/09/23 15:31 fatigued/ sleepy during daytime? Has anyone observed you stop No 11/09/23 15:31 breathing during sleep? STOP Results Negative 11/09/23 15:31 QUESTION #5 FULL TEXT : Do you snore loudly (louder than talking or can be heard through closed doors)? 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 Specify any problems Hx of Preganancy in last 3 No 11/09/23 15:31 Months Nurse Filling Out Transfusion VCHRISTIN 11/09/23 15:31 & Questions: Date: 11/09/23 11/09/23 15:31 Time: 15:32 11/09/23 15:31 Patient unable to answer at this time (ie. confused, unrespo /Reproduction History /Reproductive History - transportation technician: /Reproductive Hx- transportation technician Hx Now No 11/09/23 15:31 Gestational Age (in weeks): EDC: Hx Hx Para Hx Section SAB No 11/09/23 15:31 Active Medications Active Medications: Current Medications Generic Name Dose Route Start Last Admin Trade Name Freq PRN Reason Stop Dose Admin Lactated Ringer's 1,000 mls @ 15 mls/hr 11/14/23 09:00 IV .Q48H LEILA PFSH Medical History Wears glasses Post-menopausal Anxiety Arthritis Injury of head and neck Non-smoker Normal stress echocardiogram Hyperlipidemia CAD (coronary artery disease) Personal history of colonic polyps Osteopenia Skull fracture Hypertension Home Medications ?Medication ?Instructions ?Recorded ?Last Taken ?Type cholecalciferol (vitamin D3) 25 1,000 unit PO DAILY 10/09/16 Unknown History mcg (1,000 unit) capsule metoprolol succinate 50 mg 50 mg PO DAILY 10/09/16 11/14/23 History tablet,extended release 24 hr Allergy/AdvReac Type Severity Reaction Status Date / Time Penicillins (PCN) Allergy Swelling Verified 11/14/23 09:14 Sulfa (Sulfonamide Allergy Rash Verified 11/14/23 09:14 Antibiotics) rosuvastatin AdvReac Cognitive Verified 11/14/23 09:14 dysfunction, constipation Family History Father Heart disease Brother Myocardial infarction Parkinsons disease Mother Colon cancer Grandmother CVA (cerebral vascular accident) Surgical History Hx of right breast biopsy History of colonoscopy left wrist surgery Social History household members: spouse current occupational status: retired Smoking Status: Never smoker alcohol intake: never substance use type: does not use caffeine: Yes what type of physical activity do you participate in: walking and weight training frequency: daily seatbelt use: always do you feel safe at home: Yes additional social history: Hvtsmfj-Leoyv-Hquy retired Review of Systems (Anesthesia) ROS Narrative System reviewed and no additional complaints, except as documented.
[2023-11-14] MEDS: Lactated Ringers 1,000 ML 15 ML IV (09:24)
--- NOTE | 2023-11-14 09:43 | HP.PCM_ITS ---
HPI - General General Date of Service: 11/14/23 HPI Narrative EZEKIEL BLANC, is a 67 F who presents for screening colonoscopy due to history of colon polyps. Patient last colonoscopy was 09/2019. Patient's mother did have colon cancer in her early 60s. Patient has bowel movements daily to every other day denies any blood. Patient denies any chronic abdominal pain/nausea/vomiting/reflux. [facility] Medical History (Updated 11/14/23 @ 09:[address] Abigail Price MD) Wears glasses Post-menopausal Anxiety Arthritis Injury of head and neck Non-smoker Normal stress echocardiogram Hyperlipidemia CAD (coronary artery disease) Personal history of colonic polyps Osteopenia Skull fracture Hypertension Home Medications ?Medication ?Instructions ?Recorded ?Last Taken ?Type cholecalciferol (vitamin D3) 25 1,000 unit PO DAILY 10/09/16 Unknown History mcg (1,000 unit) capsule metoprolol succinate 50 mg 50 mg PO DAILY 10/09/16 11/14/23 History tablet,extended release 24 hr Allergy/AdvReac Type Severity Reaction Status Date / Time Penicillins (PCN) Allergy Swelling Verified 11/14/23 09:14 Sulfa (Sulfonamide Allergy Rash Verified 11/14/23 09:14 Antibiotics) rosuvastatin AdvReac Cognitive Verified 11/14/23 09:14 dysfunction, constipation Family History Father Heart disease Brother Myocardial infarction Parkinsons disease Mother Colon cancer Grandmother CVA (cerebral vascular accident) Surgical History Hx of right breast biopsy History of colonoscopy left wrist surgery Social History household members: spouse current occupational status: retired Smoking Status: Never smoker alcohol intake: never substance use type: does not use caffeine: Yes what type of physical activity do you participate in: walking and weight training frequency: daily seatbelt use: always do you feel safe at home: Yes additional social history: Yyxaygf-Eesih-Jtfq retired Past Medical/Surgical History Planned Operation Planned Operative Procedure(s): COLONOSCOPY-OA S.O.S: No Previous Hospitalizations/Surgeries HX Hospitalizations: No HX of Surgeries: COLONOSCOPY ORIF L WRIST 10/02 BREAST BX Any Problems With Anesthesia: Yes (NAUSEA, FELT LIKE PASSING OUT) You/Your Family Experience Fever (Hyperthermia) With Anes: No Cholinesterase deficiency: No Cardiovascular Hx Chest Pain within Last 2 months: No Hx of Irregular Heartbeat and/or Afib: No Hx Heart Attack: No Hx Congestive Heart Failure: No Hx Rheumatic Fever: No Hx Hypertension: Yes (STATES CONTROLLED WITH MEDS) Hx Internal Defibrillator: No Hx Pacemaker: No Hx Cardiac Catheterization: No Hx Cardiac Surgery/Stents/Etc.: No Hx Stress Test: Yes (STRESS TEST ~10 YRS AGO. STATES NEG) Hx Pain in Legs when Walking/Leg Cramps: No Respiratory Chronic Cough: No (SINUS DRAINAGE) HX of Shortness of Breath: No Hoarseness: No Hx Chronic Obstructive Pulmonary Disease (COPD): No Hx Asthma: No Hx Emphysema: No Hx Sleep Apnea: No Hx Respiratory Tract Infection/Cold (presently): No Do You Snore Loudly (louder than talking or can be heard): No Do You Often Feel Tired/ Fatigued/ Sleepy Dring Daytime?: No Has Anyone Observed You Stop Breathing During Sleep?: No Result (for STOP score): Negative Hx Smoking: No Smoking Status: Never smoker Gastrointestinal Hx Gastrointestinal Disorders: No Hx Gastrointestinal Bleed: No Hx Ulcer: No Hx Hiatal Hernia: No Difficulty Chewing/Swallowing: No Special diet followed at home: No Hx Unplanned Weight Loss of 20#: No HX Unplanned Weight Gain of 20#: No Neurological Hx Seizures: No HX Syncope/Blackout Spells/Unconsciousness: Yes (WITH COLONOSCOPY) Hx Transient Ischemic Attacks (TIA): No Hx Multiple Sclerosis: No Hx Parkinson's Disease: No Hx Head/Neck Injury: Yes (CHILDHOOD HAIRLINE FX) Hx Headaches: No Hx Back Injury/Pain: No Recent Onset of Speech Difficulty: No Restless Legs: No Does patient have nerve stimulator: No Blood Disorder Hx Leukemia: No Bleeding Tendencies: No Hx Deep Vein Thrombosis: No Hx High Cholesterol: No Blood Transmitted Disease: No Hx Hepatitis: No Hx Cirrhosis: No Hx Anemia: No Hx Blood Disorders: No Reproduction : No Is Patient Lactating: No Hx Hysterectomy: No Hx Tubal Ligation: No Are You Post Menopause: Yes Genitourinary Hx Renal Disease: No Musculoskeletal Hx Arthritis: Yes (KNEE PAIN) Hx Rheumatoid Arthritis: No Hx Gout: No Recent Onset of an Orthopedic Problem: No Endocrine Hx Diabetes: No Thyroid Disease: No Hx Steroid Therapy: No Psycho/Social Hx Substance Use: No Hx Alcohol Use: No Hx Anxiety: No Hx Depression: No Mental Illness: No Hx Dementia: No Miscellaneous Hx Cancer: No Recent Exposure to Contagious Disease: No Hx of C-Diff: No Any Loose Teeth: No Allergies Penicillins (PCN) Allergy (Verified 11/14/23 09:14) Swelling rt arm swelling Sulfa (Sulfonamide Antibiotics) Allergy (Verified 11/14/23 09:14) Rash rosuvastatin Adverse Reaction (Verified 11/14/23 09:14) Cognitive dysfunction, constipation Discharge Is Pt Admitted From a Care Home, or a Penitentiary: No After D/C, Where Do you Plan to Go: Return Home From the [facility] History Number of Risk Factors: 1 Vital Signs Vital Signs Vital Signs: 11/14/23 09:20 11/14/23 09:20 Temperature 97.4 F L Temperature Source Temporal Pulse Rate 74 Respiratory Rate 16 Respiratory Pattern Normal Blood Pressure 171/93 H Blood Pressure Mean 119 Blood Pressure Source Monitor Blood Pressure Position Semi-Fowlers Blood Pressure Location Left Arm Pulse Ox 100 Oxygen Delivery Method Room Air Weight Weight: 156 lb 8.451 oz Body Mass Index (BMI) 26.9 Physical Exam Const alert, oriented x3 and no apparent distress HEENT normocephalic and head/scalp atraumatic Resp normal respiratory effort Cardio regular rate GI soft to palpation and non-tender; Negative for non-distended Palpation: Negative for guarding Extremity no clubbing, cyanosis or edema Skin no rashes or lesions noted Neuro CN's II-XII intact bilaterally Psych mental status grossly normal Assessment & Plan Assessment/Plan (1) Personal history of colonic polyps: (2) Family history of colon cancer in mother: Surgery Risks - Colonoscopy I discussed with the patient the risks of the procedure: Yes Risks Include but are not Limited To: Risks include but are not limited to: Bleeding, perforation requiring further surgery, inability to complete colonoscopy requiring barium enema.
--- NOTE | 2023-11-14 11:32 | PCM.POST.ANE ---
Anesthesia: Postop Eval I Current Vital Signs Temperature: 97.2 F Pulse Rate: 88 Blood Pressure: 156/86 Respiratory Rate: 18 Pulse Ox: 99 Assessment Airway patent: Yes Spontaneous unlabored respirations: Yes nausea: No Vomiting: No Anesthesia Complication: No Fluid Hydration Crystalloid volume administer (ml): 800 Total IV fluid infused: 800 Progress Note Anesthesia document: Postop Eval 1 completed: Yes
--- NOTE | 2023-11-14 11:36 | OP.COLON_ITS ---
Patient Name: Jia Khalil Procedure Date: 11/14/2023 10:52 AM Date of : 1955 Age: 67 Procedure: Colonoscopy Indications: High risk colon cancer surveillance: Personal history of colonic polyps Providers: Abigail Price MD Referring MD: Abigail Price MD Medicines: Monitored Anesthesia Care Patient Profile: This is a 67 year old female. Last Colonoscopy: September 2019. Complications: No immediate complications. Procedure: Pre-Anesthesia Assessment: - Prior to the procedure, a History and Physical was performed, and patient medications and allergies were reviewed. The patient's tolerance of previous anesthesia was also reviewed. The risks and benefits of the procedure and the sedation options and risks were discussed with the patient. All questions were answered, and informed consent was obtained. Prior Anticoagulants: The patient has taken no anticoagulant or antiplatelet agents. ASA Grade Assessment: Per anesthesia. After reviewing the risks and benefits, the patient was deemed in satisfactory condition to undergo the procedure. After I obtained informed consent, the scope was passed under direct vision. Throughout the procedure, the patient's blood pressure, pulse, and oxygen saturations were monitored continuously. The Colonoscope was introduced through the anus and advanced to the cecum, identified by appendiceal orifice and ileocecal valve. The colonoscopy was technically difficult and complex due to a tortuous colon. The patient tolerated the procedure well. The quality of the bowel preparation was good. Scope In: 11:01:29 AM Scope Withdrawal Time 0 hours 20 minutes 56 seconds Scope Out: 11:29:11 AM Total Procedure Duration Time 0 hours 27 minutes 42 seconds Findings: The perianal and digital rectal examinations were normal. The entire examined colon appeared normal on direct and retroflexion views. Impression: - The entire examined colon is normal on direct and retroflexion views. - No specimens collected. Recommendation: - Discharge patient to home. - Resume previous diet. - Continue present medications. - Repeat colonoscopy 10 years--depending on overall health at that time for screening purposes. Procedure Code(s): --- Professional --- G0105, PT, Colorectal cancer screening; colonoscopy on individual at high risk Diagnosis Code(s): --- Professional --- Z86.010, Personal history of colonic polyps CPT copyright 2021 [employer]. All rights reserved. The codes documented in this report are preliminary and upon elevator constructor electric review may be revised to meet current compliance requirements. MD Abigail Leblanc MD 11/14/2023 11:35:41 AM This report has been signed electronically. Number of Addenda: 0 Note Initiated On: 11/14/2023 10:52 AM
--- NOTE | 2023-11-14 11:36 | OP.CCLET_ITS ---
11/14/2023 Doug Mcmullen [address] [place] [address] Re : Colonoscopy procedure for Jia Khalil Dear Dr. Mcmullen This procedure was performed on Tuesday, November 14, 2023. My impressions and recommendations are as follows: Impressions : - The entire examined colon is normal on direct and retroflexion views. - No specimens collected. Recommendations : - Discharge patient to home. - Resume previous diet. - Continue present medications. - Repeat colonoscopy 10 years--depending on overall health at that time for screening purposes. My findings are described in the full procedure note, which is enclosed. If I can be of further assistance, please feel free to contact me at Doctor phone number(s): , Work: . Sincerely, MD Abigail Leblanc MD 11/14/2023 11:35:41 AM This report has been signed electronically.
--- NOTE | 2023-11-14 13:07 | POSTOPAN2_ITS ---
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
--- NOTE | 2023-11-14 13:07 | PCM.POSTANE2 ---
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 Spontaneous unlabored Yes 11/14/23 11:32 PYTHON CONSULTANT.CSIR respirations Mental status nausea No 11/14/23 11:32 PYTHON CONSULTANT.CSIR Vomiting No 11/14/23 11:32 PYTHON CONSULTANT.CSIR Anesthesia Postop Eval I: Fluid Summary Crystalloid volume administer 800 11/14/23 11:32 PYTHON CONSULTANT.CSIR (ml) Colloids volume administered ( ml) Blood Product volume administered (ml) Total IV fluid infused 800 11/14/23 11:32 PYTHON CONSULTANT.CSIR Anesthesia Postop Eval I: Summary Notes Anesthesia Complication No 11/14/23 11:32 PYTHON CONSULTANT.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
== END 2023-11-14 12:24 | disposition home or self-care (01) ==
LOC: EN 08:50 → AC 08:51
PROVIDERS: PCP Family Medicine; Referring Provider Surgery; Visit Provider Surgery
PROC: 0DJD8ZZ Inspection of Lower Intestinal Tract, Via Natural or Artificial Opening Endoscopic (ICD-10-PCS; CPT 45378; principal; 2023-11-14 10:25)
DX: Z12.11 Encounter for screening for malignant neoplasm of colon (principal); I25.10 Atherosclerotic heart disease of native coronary artery without angina pectoris; Z86.010 Personal history of colon polyps; E78.5 Hyperlipidemia, unspecified; I10 Essential (primary) hypertension; Z79.899 Other long term (current) drug therapy; Z80.0 Family history of malignant neoplasm of digestive organs
CPT/HCPCS: 45378; J7120; J2405

== ENCOUNTER → 2023-12-28 | Outpatient (CLI) | payer MEDICARE, SELFPAY ==
--- NOTE | 2023-12-28 11:17 | RAD_ITS ---
EXAM: XR CHEST, 2 VIEWS CLINICAL INDICATION: CHEST PAIN TECHNIQUE: Frontal and lateral views of the chest. COMPARISON: Cardiac calcium score partial chest CT October 06, 2022, with prominent left coronary and anterior descending coronary artery calcifications. FINDINGS: LUNGS AND PLEURAL SPACES: Unremarkable. No consolidation or edema. No pneumothorax. No effusion. HEART: Unremarkable. Cardiac silhouette not enlarged. MEDIASTINUM: Central airways and mediastinal contour are unremarkable. BONES/JOINTS: Unremarkable. No acute fracture. SOFT TISSUES: Unremarkable. RAD/Chest PA and Lateral IMPRESSION: No radiographic evidence of acute cardiopulmonary disease. Electronically Signed: Leta Hanna MD at 19:37 EDT ,
[2023-12-28 12:35] LABS: D-Dimer Quantitative (DVT/PE) 0.38 FEU/ug/m (0.27-0.49)
[2023-12-28 13:08] LABS: Troponin-I HS 6 pg/mL (3.0-54.0)
== END | disposition home or self-care (01) ==
LOC: MTLAB 11:15
PROVIDERS: PCP Family Medicine; Referring Provider Family Medicine; Visit Provider Family Medicine
DX: R07.89 Other chest pain (principal)
CPT/HCPCS: 36415; 71046; 84484; 85379

== ENCOUNTER → 2024-01-31 | Outpatient (CLI) | payer MEDICARE, SELFPAY ==
[2024-02-07 20:34] LABS: HPV Reflexed? NOT INDICATED
== END | disposition home or self-care (01) ==
PROVIDERS: PCP Family Medicine; Referring Provider Nurse Practitioner Women's Health; Visit Provider Nurse Practitioner Women's Health
DX: Z12.4 Encounter for screening for malignant neoplasm of cervix (principal); Z91.89 Other specified personal risk factors, not elsewhere classified; Z78.0 Asymptomatic menopausal state
CPT/HCPCS: 88175; G0145

== ENCOUNTER → 2024-06-06 | Outpatient (CLI) | payer MEDICARE, SELFPAY ==
--- NOTE | 2024-06-06 14:54 | RAD_ITS ---
EXAM: XR Left Hip With Pelvis When Performed, 2 or 3 Views CLINICAL INDICATION: HIP AND LEG PAIN TECHNIQUE: Two or three views of the left hip with pelvis when performed. COMPARISON: No relevant prior studies available. FINDINGS: BONES/JOINTS: Unremarkable. No acute fracture. No dislocation. SOFT TISSUES: Unremarkable. RAD/HIP, UNI W/ Pelvis 2-3 Views IMPRESSION: Normal left hip x-rays. [facility]
== END | disposition home or self-care (01) ==
LOC: MTLAB 14:51 → MTRAD 14:53
PROVIDERS: PCP Family Medicine; Referring Provider Family Medicine; Visit Provider Family Medicine
DX: M25.552 Pain in left hip (principal)
CPT/HCPCS: 73502

== ENCOUNTER → 2024-07-03 | Outpatient (CLI) | payer MEDICARE, SELFPAY ==
--- NOTE | 2024-07-03 10:24 | VDLE_ITS ---
Reason For Study Reason For Study: Left leg swelling, pain RIGHT LEFT CFV is compressible, spontaneous, phasic, competent GSV is normal. and demonstrates normal augmentation. CFV is compressible, spontaneous, phasic, competent, Procedure and demonstrates normal augmentation. This is a venous duplex using B-mode, color flow and FV is compressible, spontaneous, phasic, competent spectral Doppler. and demonstrates normal augmentation. Exam performed in department. POP V is compressible, spontaneous, phasic, competent A preliminary report was called and/or faxed to and demonstrates normal augmentation. 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 T/P Trunk is compressible. PTV is compressible. LT PerV is compressible. VL/Venous Duplex US, Unilateral Interpretation Summary Deep veins of the left lower extremity are patent and compressible segmentally. There is no evidence of left lower extremity deep vein thrombosis. The left great saphenous vein appears patent an d compressible segmentally. Ordering Physician: Shoshana Slaughter Referring Physician: Doug Mcmullen Performed By: Samantha Roque RVT
== END | disposition home or self-care (01) ==
LOC: CVS 10:24
PROVIDERS: PCP Family Medicine; Referring Provider Nurse Practitioner Family; Visit Provider Nurse Practitioner Family
DX: M79.89 Other specified soft tissue disorders (principal)
CPT/HCPCS: 93971

== ENCOUNTER 2024-08-07 09:30 | Outpatient (RCR) | payer MEDICARE, SELFPAY ==
--- NOTE | 2024-07-09 13:47 | HP.PTEVAL ---
Patient's Visit Information Visit Information Visit Information: EZEKIEL BLANC is a 68 year old F referred to Physical Therapy by DEACON Hatfield with a diagnosis of L hip pain. Date of Evaluation: 07/09/24 Physical Therapist: Nicolás Suresh, DPT, OCS, CSCS Visit Plan Frequency: 2x /Week Duration: 4-6 Weeks Plan: 2x/week for 3-6 weeks for. IE HEP bridging and butterfly hip ROM 10-20x 2-3x/day and activity modification Treat with rollout and stretch L piriformis and quad, leg ppull and grade 1 femoral mobs, strngth L hip and LB ROM and strength all to hep. MH as needed Subjective Subjective: Ortho sent over due to L groin pain. Got an x ray: OA. Given a pill which did not help. Pain is unpleasant but not terrible. Gel did not help and sent to ortho who checked her out and got US to r/o blood clot. knees have always been snap crackle and pop. Groin pain can work laterally and has been present for 3 weeks without incident of onset. Might have turned leg the wrong way. No other treatment from ortho. Can;'t cross L leg due to pulling pain, that is getting better. Lives wih hubby, no steps, uses Right on one step to enter. Sleep is mostly OK now unless lies L side and then it hurts. Hurts to get out of bed to go to bathroom. Basic ADLs are all geetting done. not employed. Hobbies: adventist projects are going OK. but limps. Pain L groin and hip: Pain Intensity (Out of 10): 2 Pain Intensity Range: 0 and 8 Comment: only with bending forward with weight through L hip. Objective Objective: L antalgia in gait today but I, transfers I b ed and chair. Steps are reciprocal but pain ascending with L, not so much descending. HS and quad min tight B but L HS tight vs R. + ARNOL and MEGHANIR on L, Hip ROM R is 110 flexion and 50 er and 15 ir, L is painful at end ranges and 90 flexion, 40 er, 5 ir before pain limits. reflexes 2/3 patella and achilles B. Sensation LE WNL to gross lgiht touch. Strength hips 3+ abd and xt B, fkexion 4 R and 4- L with pain. knees 4/5 B, ankles 4/5 B without pain. Good balance today despite antalgia Lumbar fkexion hurts L groin to bend FW, ext max limtied and pianful in LB not groin. Balance/Special Test Scores Lower Extremity Functional Score: 37 Goals Goal 1:: Pain in L hip 95% better and 1/10 at worst Goal Time Frame: 4-6 Weeks Goal 2:: bend and touch floor without hesitation or R weight shift. Goal Time Frame: 4-6 Weeks Goal 3:: Pt score 50 on LEFS Goal Time Frame: 4-6 Weeks Goal 4:: I appropriate mgmt condition iwth strength and stretch ex. Goal Time Frame: 4-6 Weeks Goal 5:: walk with without pain Goal Time Frame: 4-6 Weeks Rehabilitation Potential Physical Therapy Diagnosis: Likely OA L hip with pain limiting comfortable funciton Rehabilitation Potential: Fair Anticipated Interventions Patient/Client Instruction: Educate patient on: Condition and Plan of Care For the Purpose of:: To decrease pain, To increase ROM, To improve nutrient delivery to tissue, To improve muscle performance and motor function and To increase tolerance to activity/condition/position Therapeutic Exercise to Include: Strength training, Flexibilty training, Passive ROM and Active ROM For the Purpose of:: To decrease pain, To decrease swelling/inflammation, To increase ROM, To improve nutrient delivery to tissue, To improve muscle performance and motor function and To improve gait and locomotor functions Manual Therapy Techniques to Include: Mobilization, Passive ROM and Soft tissue mobilization For the Purpose of:: To decrease pain, To increase ROM and To improve nutrient delivery to tissue Thermo therapy (hot pack): Yes For the Purpose of:: To decrease pain, To increase ROM and To improve nutrient delivery to tissue Text: Thank you for the opportunity to evaluate your patient. For Medicare and Medicare HMO plans, please review the plan of care and approve it. It will need to be FAXED BACK to us at [phone] for Medicare purposes. For Medicare only, by signing this I certify the plan of care. Please let me know if there are questions or concerns regarding this plan of care. Physician Signature: Date:
--- NOTE | 2024-08-07 10:20 | HP.PTDCSUM_ITS ---
Discharge Summary D/C summary: It has been my pleasure to treat EZEKIEL BLANC referred by Shoshana Slaughter NP-C, with the diagnosis of L hip pain for a total of 8 visit(s). Discharge Date: 08/07/24 Please see the following information for a summary of their discharge status. Subjective Subjective: Much better than before therapy. Exercises really help her be able to bend and stand longer, no major pain. Can get shoes on easier. Sleep is OK, stiff upon waking. Walking around neighborhood OK and will try [facility] next week. To doctor as needed. HEP: going well Pain L groin and hip: Pain Intensity (Out of 10): 1 Overall Improvement % Improvement: 90 Objective Objective/Function: walking without antalgia steps with one rail reciprocal. Reaching to ground eaasily adn without pain. Goals Goal 1:: Pain in L hip 95% better and 1/10 at worst Goal Progress: 90% Goal 2:: bend and touch floor without hesitation or R weight shift. Goal Progress: Goal Met Goal 3:: Pt score 50 on LEFS Goal Progress: Goal Met Goal 4:: I appropriate mgmt condition iwth strength and stretch ex. Goal Progress: Goal Met Goal 5:: walk with without pain Goal Progress: Goal Met Plan Plan: d/c to HEP D/C Information Discharge Comments: Will continue via HEP d/c sentence: If there are questions or concerns regarding this patient's physical therapy, please feel free to call me at [phone]. Thank you for the referral of this patient. Sincerely, Nicolás Suresh, DPT, OCS, CSCS Balance/Gait/Functional tests Balance/Special Test Scores Lower Extremity Functional Score: 62 Improvement % Improvement: 90
== END 2024-08-07 19:00 | disposition home or self-care (01) ==
LOC: PT 09:30
PROVIDERS: PCP Family Medicine; Referring Provider Nurse Practitioner Family; Visit Provider Nurse Practitioner Family
DX: M25.552 Pain in left hip (principal); R10.32 Left lower quadrant pain
CPT/HCPCS: 97110; 97161; 97530

== ENCOUNTER → 2024-08-27 | Outpatient (CLI) | payer MEDICARE, SELFPAY ==
--- NOTE | 2024-08-27 07:16 | BI_ITS ---
EXAM: SCRN MAMM (CAD)W/HARRIET BILAT 08/27/2024 CLINICAL HISTORY: F, Age 68 y/o , SCREENING FOR BREAST CANCER TECHNIQUE: Bilateral screening digital breast tomosynthesis with 2D and 3D images. Computer aided detection. COMPARISON: Prior exam(s) dated 08/27/2023, 08/21/2022, 08/18/2021. FINDINGS: TISSUE DENSITY: The breast tissue is almost entirely fatty. Bilateral Breast Mammographic Findings: No significant masses, calcifications or other abnormalities are identified. BI/SCRN MAMM (CAD)W/HARRIET BILAT IMPRESSION: Right Breast: BIRADS 1 NEGATIVE. Left Breast: BIRADS 1 NEGATIVE. OVERALL FINAL ASSESSMENT: BIRADS 1 NEGATIVE. RECOMMENDATION: Routine annual follow-up in 1 Year A letter with findings and recommendations will be mailed to the patient. Reading Location: [id number]
--- OUTSIDE RECORDS SUMMARY | 2024-08-27 07:25 | XMS RPT_ITS | CCD ---
Author Organization [facility] Care Team Providers Care Commercial Horticulture Instructor Name Role Phone Dr. Doug Mcmullen Primary Care Provider Dr. Doug Mcmullen Referring Provider Boy JUNIOR SYSTEMS ANALYST, JUNIOR SYSTEMS ANALYST-C Irena Attending Provider Dr. Doug Mcmullen Primary Care Provider Dr. Doug Mcmullen Referring Provider Dr. Doug Mcmullen Other Provider [phone] Dr. Shubham Fernandez Attending Provider [phone] Dr. Doug Mcmullen Primary Care Provider Dr. Doug Mcmullen Referring Provider Boy JUNIOR SYSTEMS ANALYST, JUNIOR SYSTEMS ANALYST-C Irena Attending Provider Dr. Doug Mcmullen DO Primary Care Provider Dr. Doug Mcmullen DO Attending Provider Dr. Doug Mcmullen DO Referring Provider Sukhjinder JUNIOR SYSTEMS ANALYST-CShoshana Attending Provider Sukhjinder JUNIOR SYSTEMS ANALYST-CShoshana Referring Provider Rod RAYMOND, Dr. Monzon Attending Provider [phone] Doug Mcmullen Primary Care Unavailable Shoshana Slaughter Referring Unavailable Shoshana Slaughter Attending Unavailable Doug Mcmullen Primary Care Unavailable Boy JUNIOR SYSTEMS ANALYSTIrena Attending Unavailable Boy JUNIOR SYSTEMS ANALYSTIrena Referring Unavailable Doug Mcmullen Primary Care Unavailable Shoshana Slaughter Referring Unavailable Shoshana Slaughter Attending Unavailable Benedict, Doug Primary Care Unavailable Shoshana Slaughter Referring Unavailable Nicolás Velasco Attending Unavailable Benedict, Doug Primary Care Unavailable Kellie Arrington Attending Unavailable Benedict, Doug Primary Care Unavailable Boy JUNIOR SYSTEMS ANALYST, Irena Referring Unavailable Boy JUNIOR SYSTEMS ANALYST, Irena Attending Unavailable Benedict, Doug Primary Care Unavailable Benedict, Doug Referring Unavailable Shoshana Slaughter Attending Unavailable Benedict, Doug Attending Unavailable Benedict, Doug Primary Care Unavailable Benedict, Doug Referring Unavailable Benedict, Doug Primary Care Unavailable [place] JUNIOR SYSTEMS ANALYST, Irena Attending Unavailable [place] JUNIOR SYSTEMS ANALYST, Irena Referring Unavailable Benedict, Doug Primary Care Unavailable Robotham, Abigail Referring Unavailable Robotham, Abigail Attending Unavailable Benedict, Doug Attending Unavailable Benedict, Doug Primary Care Unavailable Benedict, Doug Referring Unavailable Benedict, Doug Primary Care Unavailable Robotham, Abigail Referring Unavailable Robotham, Abigail Attending Unavailable Robotham, Abigail Consulting Unavailable Benedict, Doug Primary Care Unavailable Benedict, Doug Referring Unavailable Boy JUNIOR SYSTEMS ANALYST, Irena Attending Unavailable Benedict, Doug Primary Care Unavailable Benedict, Doug Referring Unavailable Benedict, Doug Attending Unavailable Benedict, Doug Primary Care Unavailable Benedict, Doug Referring Unavailable Benedict, Doug Attending Unavailable Allergies Allergy Classification Reported Allergen(s) Allergy Type Date of Onset Reaction(s) Facility (10 sources) Penicillins; Translations: [Penicillins] Allergy to substance 1 Swelling [facility] Comment on above: rt arm swelling (10 sources) Sulfonamides (Antibiotic); Translations: [Sulfa (Sulfonamide Antibiotics)] Allergy to substance 1 Unknown, Rash [facility] (2 sources) rosuvastatin Drug Allergy 4 Cognitive dysfunction, constipation [facility] (1 source) rosuvastatin Drug Allergy 5 [facility] Repository Medications Current Medications Medication Drug Class(es) Dates Sig (Normalized) Sig (Original) cholecalciferol 0.025 mg oral capsule (9 sources) Vitamin D Start: 10-09-2016 take 1 capsule by mouth once daily Cholecalciferol (Vitamin D3) 1,000 UNIT capsule Active 1000 U PO DAILY October 09, 2016 12:00am Start: 10-09-2016 take 1000 [IU] by [facility] every other day Cholecalciferol (Vitamin D3) Active 1000 UNIT PO EVERY OTHER DAY October 08, 2016 11:00pm 24 hr metoprolol succinate 50 mg extended release oral tablet (9 sources) beta-Adrenergic Malik Start: 10-09-2016 take 1 tablet by mouth once daily Metoprolol Succinate 50 MG tablet extended release 24 hr Active 50 mg PO DAILY October 09, 2016 12:00am Completed/Discontinued Medications Medication Drug Class(es) Dates Sig (Normalized) Sig (Original) acetaminophen 325 mg oral capsule (8 sources) Start: 09-21-2021 End: 09-25-2023 take 1 capsule by mouth once as needed Acetaminophen (Tylenol) 325 mg capsule Discontinued 325 mg PO ONCE as needed September 21, 2021 12:00am September 25, 2023 10:02am acetaminophen 325 mg / oxyCODONE hydrochloride 5 mg oral tablet (9 sources) Opioid Agonist Start: 09-27-2016 End: 01-15-2019 Oxycodone-Acetamino phen 1 TABLET tablet Discontinued 1 - 2 {tbl} PO EVERY 4 HOURS NEEDED as needed for Pain September 27, 2016 12:00am January 15, 2019 8:12am Start: 09-27-2016 End: 01-15-2019 take 1 tablet by mouth every four hours as needed Oxycodone-Acetaminophen Discontinued 1 - 2 TABLET PO EVERY 4 HOURS NEEDED September 26, 2016 11:00pm January 15, 2019 7:12am aspirin 81 mg delayed release oral tablet (3 sources) Platelet Aggregation Inhibitor, Nonsteroidal Anti-inflammatory Drug Start: 01-29-2023 End: 09-25-2023 take 1 tablet by mouth once daily Aspirin (Adult Aspirin Regimen) 81 mg tablet,delayed release (DR/EC) Discontinued 81 mg PO DAILY January 29, 2023 1:00am September 25, 2023 10:02am estradiol 0.1 mg/ml vaginal cream (9 sources) Estrogen Start: 01-24-2021 End: 09-21-2021 Estradiol 0.01 % (0.1 mg/gram) cream Discontinued 0 VAGINAL .COMPLEX 42.5 January 24, 2021 1:00am September 21, 2021 10:03am small amount as directed vaginal every other day X 4 weeks then twice a week; Start: 01-24-2021 End: 09-21-2021 Estradiol Discontinued 0 VAG INAL .COMPLEX 42.5 January 24, 2021 12:00am September 21, 2021 9:03am small amount as directed vaginal every other day X 4 weeks then twice a week; ibuprofen 200 mg oral capsule (9 sources) Nonsteroidal Anti-inflammatory Drug Start: 10-09-2016 End: 09-21-2021 Ibuprofen 200 MG capsule Discontinued 200 mg PO NEEDED as needed for Pain October 09, 2016 12:00am September 21, 2021 10:03am rosuvastatin calcium 10 mg oral tablet (3 sources) HMG-CoA Reductase Inhibitor Start: 01-29-2023 End: 09-25-2023 take 1 tablet by mouth once daily Rosuvastatin 10 mg tablet Discontinued 10 mg PO DAILY January 29, 2023 1:00am September 25, 2023 10:02am Problems Active Problems Problem Classification Problem Date Documented Date Episodic/Chronic Abdominal pain (3 sources) Left inguinal pain; Translations: [Left lower quadrant pain] Onset: 08-08-2024 07-03-2024 Episodic Coronary atherosclerosis and other heart disease (1 source) Atherosclerotic heart disease of [place] coronary artery without angina pectoris; Translations: [Atherosclerotic heart disease of [place] coronary artery without angina pectoris] Onset: 09-18-2023 Chronic Essential hypertension (9 sources) Hypertensive disorder; Translations: [Essential (primary) hypertension] 07-18-2018 Chronic Comment on above: CONTROLLED ON MED Fracture of upper limb (9 sources) Injury of wrist; Translations: [Fracture of unspecified carpal bone, left wrist, initial encounter for closed fracture] 09-28-2016 Episodic Genitourinary symptoms and ill-defined conditions (3 sources) Female stress incontinence; Translations: [Stress incontinence (female) (male)] Onset: 01-31-2024 01-31-2024 Chronic Comment on above: fernie cary Menopausal disorders (13 sources) Atrophic vaginitis; Translations: [Postmenopausal atrophic vaginitis] Onset: 01-31-2024 Chronic Comment on above: not problematic Osteoporosis (1 source) Age-related osteoporosis without current pathological fracture; Translations: [Age-related osteoporosis without current pathological fracture] Onset: 10-23-2023 Chronic Other bone disease and musculoskeletal deformities (9 sources) Osteopenia; Translations: [Other specified disorders of bone density and structure, unspecified site] 08-22-2021 Episodic Comment on above: recommend PCP FU Other connective tissue disease (2 sources) Swelling of left lower limb; Translations: [Other specified soft tissue disorders] 07-03-2024 Episodic Other connective tissue disease (1 source) Other specified soft tissue disorders; Translations: [Other specified soft tissue disorders] Onset: 07-04-2024 Episodic Other non-traumatic joint disorders (2 sources) Hip pain; Translations: [Pain in left hip] 07-03-2024 Episodic Other non-traumatic joint disorders (1 source) Pain in left hip; Translations: [Pain in left hip] Onset: 08-08-2024 Episodic Other screening for suspected conditions (not mental disorders or infectious disease) (6 sources) Patient encounter status; Translations: [Encounter for screening for malignant neoplasm of colon] Onset: 09-07-2023 09-25-2023 Episodic Residual codes; unclassified (9 sources) H/O: risk factor; Translations: [Other specified personal risk factors, not elsewhere classified] 01-26-2022 Episodic Comment on above: Needs yearly pap wit h reflex HPV Residual codes; unclassified (9 sources) Family history of cancer of colon; Translations: [Family history of malignant neoplasm of digestive organs] 01-15-2019 Episodic Unclassified (2 sources) Pain of left hip; Translations: [M25.552 - Pain in left hip,R10.32 - Left lower quadrant pain] Unclassified (1 source) Left inguinal pain Past or Other Problems Problem Classification Problem Date Documented Da te Episodic/Chronic Nonspecific chest pain (1 source) Other chest pain; Translations: [Other chest pain] Onset: 01-21-2024 Episodic Other and unspecified benign neoplasm (1 source) Personal history of colonic polyps; Translations: [Personal history of colonic polyps] Onset: 12-04-2023 Episodic Other bone disease and musculoskeletal deformities (4 sources) Other specified disorders of bone density and structure, unspecified site; Translations: [Disorder of bone and cartilage, unspecified] Onset: 01-31-2024 Episodic Residual codes; unclassified (4 sources) Other specified personal risk factors, not elsewhere classified; Translations: [Other specified personal history presenting hazards to health] Onset: 01-31-2024 Episodic Residual codes; unclassified (1 source) Family history of malignant neoplasm of digestive organs; Translations: [Family history of malignant neoplasm of digestive organs] Onset: 12-04-2023 Episodic Results Test Name Value Interpretation Reference Range Facility PT D/C Summary (1)on 025 PT D/C Summary (1) [facility] [address] [place] [address] / REHABILITATION SERVICES DISCHARGE SUMMARY MR#: [id number] Acct: [id number] Name: EZEKIEL KHALIL Rep #: [id number] : 1955 68 From: Nicolás Suresh DPT, OCS, CSCS Referring Dr.: DEACON Slaughter Status: REG RCR Insurance: [employer] S[employer] SELF PAY INSURANCE Discharge Summary D/C summary: It has been my pleasure to treat EZEKIEL KHALIL referred by DEACON Hatfield, with the diagnosis of L hip pain for a total of 8 visit(s). Discharge Date: 08/07/24 Please see the following information for a summary of their discharge status. Subjective Subjective: Much better than before therapy. Exercises really help her be able to bend and stand longer, no major pain. Can get shoes on easier. Sleep is OK, stiff upon waking. Walking around neighborhood OK and will try [employer] next week. To doctor as needed. HEP: going well Pain L groin and hip: Pain Intensity (Out of 10): 1 Overall Improvement % Improvement: 90 Objective Objective/Function: walking without antalgia steps with one rail reciprocal. Reaching to ground eaasily adn without pain. Goals Goal 1:: Pain in L hip 95% better and 1/10 at worst Goal Progress: 90% Goal 2:: bend and touch floor without hesitation or R weight shift. Goal Progress: Goal Met Goal 3:: Pt score 50 on LEFS Goal Progress: Goal Met Goal 4:: I appropriate mgmt condition iwth strength and stretch ex. Goal Progress: Goal Met Goal 5:: walk with without pain Goal Progress: Goal Met Plan Plan: d/c to HEP D/C Information Discharge Comments: Will continue via HEP d/c sentence: If there are questions or concerns regarding this patient's physical therapy, please feel free to call me at [phone]. Thank you for the referral of this patient. Sincerely, Nicolás Suresh DPT, OCS, CSCS Balance/Gait/Function al tests Balance/Special Test Scores Lower Extremity Functional Score: 62 Improvement % Improvement: 90 08/07/24 1020 CC: DEACON Slaughter; Dr. Doug Mcmullen, EBG Signed Normal [facility] Inital Evaluation (1) - PTon 07-09-2024 Inital Evaluation (1) - PT [facility] [address] [place] [address] / REHABILITATION SERVICES INITIAL EVALUATION MR#: [id number] Acct: [id number] Name: EZEKIEL KHALIL Rep #: [id number] : 1955 68 From: Nicolás Suresh DPT, STUART, OXANA Referring Dr.: DEACON Hatfield Status: REG RCR Insurance: [facility] MEDICARE SENIOR [employer]VANTA SELF PAY INSURANCE Patient's Visit Information Visit Information Visit Information: EZEKIEL KHALIL is a 68 year old F referred to Physical Therapy by DEACON Hatfield with a diagnosis of L hip pain. Date of Evaluation: 07/09/24 Physical Therapist: Nicolás Suresh DPT, STUART, CSCS Visit Plan Frequency: 2x /Week Duration: 4-6 Weeks Plan: 2x/week for 3-6 weeks for. IE HEP bridging and butterfly hip ROM 10-20x 2-3x/day and activity modification Treat with rollout and stretch L piriformis and quad, leg ppull and grade 1 femoral mobs, strngth L hip and LB ROM and strength all to hep. MH as needed Subjective Subjective: Ortho sent over due to L groin pain. Got an x ray: OA. Given a pill which did not help. Pain is unpleasant but not terrible. Gel did not help and sent to ortho who checked her out and got US to r/o blood clot. knees have always been snap crackle and pop. Groin pain can work laterally and has been present for 3 weeks without incident of onset. Might have turned leg the wrong way. No other treatment from ortho. Can;'t cross L leg due to pulling pain, that is getting better. Lives wih hubby, no steps, uses Right on one step to enter. Sleep is mostly OK now unless lies L side and then it hurts. Hurts to get out of bed to go to bathroom. Basic ADLs are all geetting done. not employed. Hobbies: taoist projects are going OK. but limps. Pain L groin and hip: Pain Intensity (Out of 10): 2 Pain Intensity Range: 0 and 8 Comment: only with bending forward with weight through L hip. Objective Objective: L antalgia in gait today but I, transfers I b ed and chair. Steps are reciprocal but pain ascending with L, not so much descending. HS and quad min tight B but L HS tight vs R. + ARNOL and FADDIR on L, Hip ROM R is 110 flexion and 50 er and 15 ir, L is painful at end ranges and 90 flexion, 40 er, 5 ir before pain limits. reflexes 2/3 patella and achilles B. Sensation LE WNL to gross lgiht touch. Strength hips 3+ abd and xt B, fkexion 4 R and 4- L with pain. knees 4/5 B, ankles 4/5 B without pain. Good balance today despite antalgia Lumbar fkexion hurts L groin to bend FW, ext max limtied and pianful in LB not groin. Balance/Special Test Scores Lower Extremity Functional Score: 37 Goals Goal 1:: Pain in L hip 95% better and 1/10 at worst Goal Time Frame: 4-6 Weeks Goal 2:: bend and touch floor without hesitation or R weight shift. Goal Time Frame: 4-6 Weeks Goal 3:: Pt score 50 on LEFS Goal Time Frame: 4-6 Weeks Goal 4:: I appropriate mgmt condition iwth strength and stretch ex. Goal Time Frame: 4-6 Weeks Goal 5:: walk with without pain Goal Time Frame: 4-6 Weeks Rehabilitation Potential Physical Therapy Diagnosis: Likely OA L hip with pain limiting comfortable funciton Rehabilitation Potential: Fair Anticipated Interventions Patient/Client Instruction: Educate patient on: Condition and Plan of Care For the Purpose of:: To decrease pain, To increase ROM, To improve nutrient delivery to tissue, To improve muscle performance and motor function and To increase tolerance to activity/condition/po sition Therapeutic Exercise to Include: Strength training, Flexibilty training, Passive ROM and Active ROM For the Purpose of:: To decrease pain, To decrease swelling/inflammation , To increase ROM, To improve nutrient delivery to tissue, To improve muscle performance and motor function and To improve gait and locomotor functions Manual Therapy Techniques to Include: Mobilization, Passive ROM and Soft tissue mobilization For the Purpose of:: To decrease pain, To increase ROM and To improve nutrient delivery to tissue Thermo therapy (hot pack): Yes For the Purpose of:: To decrease pain, To increase ROM and To improve nutrient delivery to tissue Text: Thank you for the opportunity to evaluate your patient. For Medicare and Medicare HMO plans, please review the plan of care and approve it. It will need to be FAXED BACK to us at [phone] for Medicare purposes. For Medicare only, by signing this I certify the plan of care. Please let me know if there are questions or concerns regarding this plan of care. Physician Signature: Date : 07/09/24 1347 CC: DEACON Slaughter; Dr. Doug Mcmullen, EBG Signed Normal [facility] Orthopedic Visit Reporton Orthopedic Visit Report [facility] [address] [place] [id number] OFFICE VISIT Date of Service: 07/03/24 MR#: [id number] Acct: [id number] Name: EZEKIEL KHALIL Rep #: [id number] : 1955 Provider: DEACON devlin Age/Sex: 68/F Location[place] [facility] [place] Status: Signed Intake Vital Signs 01/31/24 08:14 Height 5 ft 4 in Intake Visit Reasons: LEFT LEG/HIP Accompanied by: Self Is patient in pain?: Yes Allergies Penicillins (PCN) Allergy (Verified 07/03/24 08:52) Swelling Sulfa (Sulfonamide Antibiotics) Allergy (Verified 07/03/24 08:52) Rash rosuvastatin Adverse Reaction (Verified 07/03/24 08:52) Cognitive dysfunction, constipation Medications ???Medication ???Instructions ???Recorded ???Confirmed ???Type cholecalciferol (vitamin D3) 25 1,000 unit PO DAILY 10/09/1607/03 History mcg (1,000 unit) capsule metoprolol succinate 50 mg 50 mg PO DAILY 10/09/16 07/03/24 H istory tablet,extended release 24 hr Have you fallen in the past year?: No PFSH Medical History Wears glasses Post-menopausal Anxiety Arthritis Injury of head and neck Non-smoker Normal stress echocardiogram Hyperlipidemia CAD (coronary artery disease) Osteopenia Skull fracture Hypertension Surgical History Hx of right breast biopsy History of colonoscopy left wrist surgery Family History Father Heart disease Brother Myocardial infarction Parkinsons disease Mother Colon cancer Grandmother CVA (cerebral vascular accident) Social History household members: spouse current occupational status: retired Smoking Status: Never smoker alcohol intake: never substance use type: does not use caffeine: Yes what type of physical activity do you participate in: walking and weight training frequency: daily seatbelt use: always do you feel safe at home: Yes additional social history: [employer] retired HPI LEFT LEG/HIP Details: This documentation accurately reflects the service provided and the decisions made by me, DEACON Hatfield 07/03/24 0841. Part of today???s visit was documented by [DERECK Harvey], acting as scribe. EZEKIEL KHALIL is a 68 year old F here today for left leg and hip pain. Patient notes that she has had pain for about 3 weeks. She complains of pain into her groin and into her left thigh. She denies any known injury. She has decreased hip range of motion. Patient has increased pain with twisting and putting her socks on. She continues to walk and do her stretches. Patient had xrays which are here for review. Patient takes Tylenol as needed. She uses a diclofenac gel over the thigh but is disappointed as she cant put it on her hip. She also uses an Jean ointment as well. Agree with above. Ezekiel is a pleasant 68-year-old female presenting for evaluation of anterior groin pain on the left. Patient denies any injuries or falls. Symptoms have been present for approximately 3 weeks, gradually improved since onset. Patient also reports swollen tender region of the anterior upper thigh. Denies any back pain. Does note limited range of motion of the hip aggravates her symptoms. Patient continues to walk and be active with spouse, walking at a slower pace due to discomfort. Patient has also required spouses help with applying shoes and socks. Upon discussion, the patient did recently travel to and from [place] by car and symptoms started shortly after. Denies any history of DVT. Denies any shortness of breath or chest pains. Rare use of Tylenol does help ease pain as well as positioning. ROS Const All systems reviewed are unremarkable except as noted in H and other (A O x 3, no apparent distress. No recent illness.) ENT Denies dizziness Card Denies chest pain, Denies dyspnea, Denies edema and Reports other (No palpitations) Resp Denies cough, Denies dyspnea and Reports other (No recent URI) GI Reports system reviewed and no additional complaints, except as documented, Denies nausea and Denies vomiting Musc Reports as per HPI and Reports limited range of motion Details: Swelling and pain to proximal anterior inner thigh Neuro No dizziness Psych Reports system reviewed and no additional complaints, except as documented Gerard/Lymph Denies easy bleeding and Denies easy bruising Ortho Exam General General: Yes no acute distress and Yes well groomed Neurologic: Yes alert and Yes oriented x3 (Forgetful, repetitive at times) Left Hip HIP: Skin is pink, warm, dry and intact. No skin discoloration is present. ROM: Flexion [60 degrees]; Extension 15 degrees; Ad (more content not included)... Normal [facility] Venous Duplex US, Unilateral on 07-03-2024 Venous Duplex US, Unilateral [facility] [address] [place] [address] Venous Duplex US, Unilateral 07/03/24 1031 MR#: [id number] Acct: [id number] Name: EZEKIEL KHALIL Rep #: [id number] : 1955 68 From: Nicolás Velasco MD Attending Dr: DEACON Hatfield Status: REG CLI Ordering Dr: Shoshana Slaughter Date: 07/03/24 Location: [facility] Sex: F C Admitted: Reason For Study Reason For Study: Left leg swelling, pain RIGHT LEFT CFV is compressible, spontaneous, phasic, competent GSV is normal. and demonstrates normal augmentation. CFV is compressible, spontaneous, phasic, competent, Procedure and demonstrates normal augmentation. This is a venous duplex using B-mode, color flow and FV is compressible, spontaneous, phasic, competent spectral Doppler. and demonstrates normal augmentation. Exam performed in department. POP V is compressible, spontaneous, phasic, competent A preliminary report was called and/or faxed to and demonstrates normal augmentation. Sukhjinder OWENS-Layla. T/P Trunk is compressible. PTV is compressible. LT PerV is compressible. VL/Venous Duplex US, Unilateral Interpretation Summary Deep veins of the left lower extremity are patent and compressible segmentally. There is no evidence of left lower extremity deep vein thrombosis. The left great saphenous vein appears patent and compressible segmentally. Ordering Physician: Shoshana Slaughter Referring Physician: Doug Mcmullen Performed By: Samantha Roque T 07/03/24 1732 Date Nicolás Velasco MD CC: JUNIOR SYSTEMS ANALYST-C Shoshana Slaughter; Dr. Doug Mcmullen DO Date Dictated: 07/03/24 1031 Date Transcribed: 07/03/241731 Healthcare Specialist: Signed Normal [facility] Venous duplex ultrasound rep ortOrdered By: Nicolás Velasco on 07-03-2024 US Vein [facility] [place] [address] Venous Duplex US, Unilateral 07/03/24 1031 MR#: [id number] Acct: [id number] Name: EZEKIEL KHALIL Rep #:[id number] : 1955 68 From: Nicolás Morgan Attending Dr: Shoshana Slaughter, JUNIOR SYSTEMS ANALYST-C Status: REG CLI Ordering Dr: Shoshana Slaughter JUNIOR SYSTEMS ANALYST-C Date: 07/03/24 Location: [facility] Sex: F C Admitted: Reason For Study Reason For Study: Left leg swelling, pain RIGHT LEFT CFV is compressible, spontaneous, phasic, competent GSV is normal. and demonstrates normal augmentation. CFV is compressible, spontaneous, phasic, competent, Procedure and demonstrates normal augmentation. This is a venous duplex using B-mode, color flow and FV is compressible, spontaneous, phasic, competent spectral Doppler. and demonstrates normal augmentation. Exam performed in department. POP V is compressible, spontaneous, phasic, competent A preliminary report was called and/or faxed to and demonstrates normal augmentation. 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 T/P Trunk is compressible. PTV is compressible. LT PerV is compressible. VL/Venous Duplex US, Unilateral Interpretation Summary Deep veins of the left lower extremity are patent and compressible segmentally. There is no evidence of left lower extremity deep vein thrombosis. The left great saphenous vein appears patent andcompressible segmentally. Ordering Physician: Shoshana Slaughter Referring Physician: Doug Mcmullen Performed By: Samantha Roque RVT 07/03/241731 Date _ Nicolás Velasco MD CC: DEACON Slaughter; Dr. Doug Mcmullen DO ~ Date Dictated: 07/03/24 1031 Date Transcribed: 07/03/241731 Healthcare Specialist: Signed [facility] Work Phone: HIP, UNI W/ Pelvis 2-3 Views on 06-06-2024 HIP, UNI W/ Pelvis 2-3 Views [facility] Imaging Services [address] [place] [address] HIP, UNI W/ Pelvis 2-3 Views MR#: [id number] Acct: [id number] Name: EZEKIEL KHALIL Rep #: [id number] : 1955 F 68 From: Doug Walsh MD PCP: Dr. Doug Mcmullen DO Status: REG CLI Study: HIP, UNI W/ Pelvis 2-3 Views Date of Exam: Exam# [id number] Ordering Dr: Doug Mcmullen DO EXAM: XR Left Hip With Pelvis When Performed, 2 or 3 Views CLINICAL INDICATION: HIP AND LEG PAIN TECHNIQUE: Two or three views of the left hip with pelvis when performed. COMPARISON: No relevant prior studies available. FINDINGS: BONES/JOINTS: Unremarkable. No acute fracture. No dislocation. SOFT TISSUES: Unremarkable. RAD/HIP, UNI W/ Pelvis 2-3 Views IMPRESSION: Normal left hip x-rays. Reading Location: [facility] CC: Dr. Doug Mcmullen DO Healthcare Specialist: Signed Normal [facility] PAP I-G w/rfx hrHPV-Aptimaon 02-07-2024 ADEQ Comment Normal . [facility] Comment on above: Order Comment: Speci men Comment: [id number] Specimen Comment: No. of containers..01 ThinPrep Vial Result Comment: Sati sfactory for evaluation. Endocervical component may not be distinguished in cases of atrophy. Performed By: #### L 7400.0353 #### [facility] [address] [place], [place], [address] COMM . Normal . [facility] Comment on above: Order Comment: Speci men Comment: [id number] Specimen Comment: No. of containers..01 ThinPrep Vial Performed By: #### L 7400.0353 #### [facility] [address] [place], [address] COMMENT TNP Normal . [facility] Comment on above: Order Comment: Speci men Comment: [id number] Specimen Comment: No. of containers..01 ThinPrep Vial Result Comment: The Thin Prep(R) Trouble Locator Test Desk was unable to read this specimen. Therefore a manual review was performed. Performed By: #### L 7400.0353 #### [facility] [address] [place], [address] DIAG Comment Normal . [facility] Comment on above: Order Comment: Speci men Comment: [id number] Specimen Comment: No. of containers..01 ThinPrep Vial Result Comment: NEGA TIVE FOR INTRAEPITHELIAL LESION OR MALIGNANCY. CELLULAR CHANGES ASSOCIATED WITH ATROPHY ARE PRESENT. Performed By: #### L 7400.0353 #### [facility] [address] [place], [address] HPV RFLX Comment Normal . [facility] Comment on above: Order Comment: Speci men Comment: [id number] Specimen Comment: No. of containers..01 ThinPrep Vial Result Comment: The HPV DNA reflex criteria were not met with this specimen result therefore, no HPV testing was performed. Performed at: [address] [id number] Teradata Developer: Erin Grey MD, Phone: [phone] Performed By: #### L 7400.0353 #### [facility] [address] [place], [address] PAPSMR Comment Normal . [facility] Comment on above: Order Comment: Speci men Comment: [id number] Specimen Comment: No. of containers..01 ThinPrep Vial Result Comment: The Pap smear is a screening test designed to aid in the detection of premalignant and malignant conditions of the uterine cervix. It is not a diagnostic procedure and should not be used as the sole means of detecting cervical cancer. Both false-positive and false-negative reports do occur. Performed By: #### L 7400.0353 #### [facility] [address] [place], [address] PERFORM Comment Normal . [facility] Comment on above: Order Comment: Speci men Comment: [id number] Specimen Comment: No. of containers..01 ThinPrep Vial Result Comment: Christianne Cohn, Commercial Manager (ASCP) Performed By: #### L 7400.0353 #### [facility] [address] 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) Chief Complaint: Annual E Commerce Specialist Required: No Is patient in pain?: No Allergies Penicillins (PCN) Allergy (Verified 01/31/24 08:18) Swelling Sulfa (Sulfonamide Antibiotics) Allergy (Verified 01/31/24 08:18) Rash rosuvastatin Adverse Reaction (Verified 01/31/24 08:18) Cognitive dysfunction, constipation Medications ???Medication ???Instructions ???Recorded ???Confirmed ???Type cholecalciferol (vitamin D3) 25 1,000 unit PO DAILY 10/09/16 01/31/24 History mcg (1,000 unit) capsule metoprolol succinate 50 mg 50 mg PO DAILY 10/09/16 01/31/24 History tablet,extended release 24 hr Is last menstrual period known: No Post menopausal: Yes Patient : No : No PFSH Medical History Wears glasses Post-menopausal Anxiety Arthritis Injury of head and neck Non-smoker Normal stress echocardiogram Hyperlipidemia CAD (coronary artery disease) Osteopenia Skull fracture Hypertension Surgical History Hx of right breast biopsy History of colonoscopy left wrist surgery Family History Father Heart disease Brother Myocardial infarction Parkinsons disease Mother Colon cancer Grandmother CVA (cerebral vascular accident) Social History household members: spouse current occupational status: retired Smoking Status: Never smoker alcohol intake: never substance use type: does not use caffeine: Yes what type of physical activity do you participate in: walking and weight training frequency: daily seatbelt use: always do you feel safe at home: Yes additional social history: [employer] retired History 0 Elective abortions Hx Para Spontaneous abortions Hx # Term Pregnancies Ectopic pregnancies Hx # Pregnancies Multiple births # of living children HPI Encounter for routine gynecological examination Details: EZEKIEL KHALIL is a 68 year old who presents for annual exam. Occa urine loss, mostly with activity Last PAP: 2022, do yearly History of abnormal PAP: no Last mammogram: 08/2023 History of abnormal mammogram: no Colon cancer screenin Other preventative health care screenings: [facility] Female Reproductive History Questions: metorrhagia: No and sexually active: No ROS Const Constitutional: Denies fatigue, weight gain or weight loss Cardio Card: Denies chest pain Resp Resp: Denies cough or dyspnea on exertion GI GI: Denies abdominal pain, bloating, change in stool character, constipation or vomiting : Reports as per HPI; Denies difficulty voiding, pelvic pain, urinary frequency, urinary incontinence, urinary urgency, vaginal discharge or vaginal pruritus Exam Const General: cooperative, healthy appearing, no acute distress and well developed Orientation: alert, oriented to person and oriented to place [facility] Head: normal to inspection Neck Neck: normal visual inspection Thyroid: thyroid normal Lymphatic: no lymphadenopathy noted Chest Breast inspection: normal inspection of the breasts and normal inspection of the axillae Breast palpation: normal palpation of the breasts, normal palpation of the axillae and no axillary lymphadenopathy Resp Effort Inspection: normal respiratory effort GI Palpation: soft, no masses and nontender Rectal Exam: deferred External Female Exam: normal external appearance (3 inclusion cysts left vulva) and normal appearance of the urethra (slightly dilated) Urethra: normal appearance of the urethra (slightly dilated) and normal palpation Speculum Exam - Vagina: normal vaginal discharge, vagina atrophic, no lesions, No vaginal bleeding and no masses Speculum Exam - Cervix: closed (stenotic) Bimanual Exam- Vagina Uterus: normal bimanual exam, uterine size normal, uterine shape normal and non-tender Bimanual Exam- Adnexa, other: normal adnexae, no masses, normal and non-tender Pelvic Support: normal OB/External Speculum: No vaginal bleeding Speculum Exam: no vaginal bleeding Neuro General: patient alert and patient oriented x3 Psych Affect: normal affect (more content not included)... Normal [facility] Chest PA and Lateralon 12-27 Chest PA and Lateral [facility] Imaging Services [address] [place], [place] [address] Chest PA and Lateral MR#: [id number] Acct: [id number] Name: EZEKIEL KHALIL Rep #: [id number] : 1955 F 68 From: Leta Hanna MD PCP: Dr. Doug Mcmullen DO Status: REG CLI Study: Chest PA and Lateral Date of Exam: 12/28/23 Exam# [id number] Ordering Dr: Doug Mcmullen DO [id number] EXAM: XR CHEST, 2 VIEWS CLINICAL INDICATION: CHEST PAIN TECHNIQUE: Frontal and lateral views of the chest. COMPARISON: Cardiac calcium score partial chest CT October 06, 2022, with prominent left coronary and anterior descending coronary artery calcifications. FINDINGS: LUNGS AND PLEURAL SPACES: Unremarkable. No consolidation or edema. No pneumothorax. No effusion. HEART: Unremarkable. Cardiac silhouette not enlarged. MEDIASTINUM: Central airways and mediastinal contour are unremarkable. BONES/JOINTS: Unremarkable. No acute fracture. SOFT TISSUES: Unremarkable. RAD/Chest PA and Lateral IMPRESSION: No radiographic evidence of acute cardiopulmonary disease. Electronically Signed: Leta Hanna MD at 19:37 EDT , CC: Dr. Doug Mcmullen, Healthcare Specialist: Signed Normal [facility] D-Dimer Quantitative (DVT/PE )on 12-28-2023 D-DIMER QUANT 0.38 FEU/ug/m Normal 0.27-0.49 [facility] Comment on above: Result Comment: NORM AL D-Dimer level (<0.50) indicates no DVT or PE. Performed By: #### L 300.8000, L501.4020 #### [facility] [address] [facility] [place], [address] L501.4020on 12-28-2023 TROPONIN-I HS 6 pg/mL Normal 3.0-54.0 [facility] Comment on above: Order Comment: 1 Result Comment: Plea se Note: New Test Units and Gender Specific Reference Ranges. For more information see Policy Stat Procedure [place] High Sensitivity Troponin (TNIH) and attachments. Performed By: #### L 300.8000, L501.4020 #### [facility] [address] [place], [address] Colonoscopy Reporton 024 Colonoscopy Report [facility] Medical Records Department [address] [place] [address] Colonoscopy Report MR#: [id number] Acct: [id number] Name: EZEKIEL KHALIL Rep #: [id number] : 1955 67 From: Abigail Price MD PCP: Dr. Doug Mcmullen, DO Status:REG SDC Patient Name: Ezekiel Khalil Procedure Date: 11/14/2023 10:52 AM Date of : 1955 Age: 67 Procedure: Colonoscopy Indications: High risk colon cancer surveillance: Personal history of colonic polyps Providers: Abigail Price MD Referring MD: Abigail Price MD Medicines: Monitored Anesthesia Care Patient Profile: This is a 67 year old female. Last Colonoscopy: September 2019. Complications: No immediate complications. Procedure: Pre-Anesthesia Assessment: - Prior to the procedure, a History and Physical was performed, and patient medications and allergies were reviewed. The patient's tolerance of previous anesthesia was also reviewed. The risks and benefits of the procedure and the sedation options and risks were discussed with the patient. All questions were answered, and informed consent was obtained. Prior Anticoagulants: The patient has taken no anticoagulant or antiplatelet agents. ASA Grade Assessment: Per anesthesia. After reviewing the risks and benefits, the patient was deemed in satisfactory condition to undergo the procedure. After I obtained informed consent, the scope was passed under direct vision. Throughout the procedure, the patient's blood pressure, pulse, and oxygen saturations were monitored continuously. The Colonoscope was introduced through the anus and advanced to the cecum, identified by appendiceal orifice and ileocecal valve. The colonoscopy was technically difficult and complex due to a tortuous colon. The patient tolerated the procedure well. The quality of the bowel preparation was good. Scope In: 11:01:29 AM Scope Withdrawal Time 0 hours 20 minutes 56 seconds Scope Out: 11:29:11 AM Total Procedure Duration Time 0 hours 27 minutes 42 seconds Findings: The perianal and digital rectal examinations were normal. The entire examined colon appeared normal on direct and retroflexion views. Impression: - The entire examined colon is normal on direct and retroflexion views. - No specimens collected. Recommendation: - Discharge patient to home. - Resume previous diet. - Continue present medications. - Repeat colonoscopy 10 years--depending on overall health at that time for screening purposes. Procedure Code(s): --- Professional --- G0105, PT, Colorectal cancer screening; colonoscopy on individual at high risk Diagnosis Code(s): --- Professional --- Z86.010, Personal history of colonic polyps CPT copyright 2021 [employer]. All rights reserved. The codes documented in this report are preliminary and upon server manager review may be revised to meet current compliance requirements. MD Abigail Leblanc MD 11/14/2023 11:35:41 AM This report has been signed electronically. Number of Addenda: 0 Note Initiated On: 11/14/2023 10:52 AM 11/14/23 1135 Date Abigail Price MD Cosigner Signature: Date (if indicated) CC: Dr. Doug Mcmullen, ; Dr. Abigail Price MD Date Dictated: 11/14/23 1052 Date Transcribed: Healthcare Specialist: WHITLEY Teague [facility] MR/POSTOP.ALYSSA 11-14-2023 MR/POSTOP.[facility] Medical Records Department [address] [place] [address] Anesthesia Postop Eval I 11/14/23 1132 MR#: [id number] Acct: [id number] Name: EZEKIEL KHALIL Rep #: [id number] : 1955 67 From: Adriane Arce PCP: Dr. Doug Mcmullen DO Status:REG SDC Y Race: C Location: [place] [address] Anesthesia: Postop Eval I Current Vital Signs Temperature: 97.2 F Pulse Rate: 88 Blood Pressure: 156/86 Respiratory Rate: 18 Pulse Ox: 99 Assessment Airway patent: Yes Spontaneous unlabored respirations: Yes nausea: No Vomiting: No Anesthesia Complication: No Fluid Hydration Crystalloid volume administer (ml): 800 Total IV fluid infused: 800 Progress Note Anesthesia document: Postop Eval 1 completed: Yes 11/14/23 1133 Date Adriane Ornelas Signature: Date CC: Signed Normal [facility] MR/[id number] 11-14-2023 MR/POSTOPAN2 [facility] Medical Records Department [address] [place] [address] Anesthesia Postop Eval II 11/14/23 1307 MR#: [id number] Acct: [id number] Name: EZEKIEL KHALIL Rep #: [id number] : 1955 67 From: Jose Hinojosa MD PCP: Dr. Doug Mcmullen, DO Status:[facility] Y Race: C Location: EN Anesthesia Postop Eval I Sum Postop Eval Completion status Anesthesia document: Postop Eval 1 completed: Yes Anesthesia Postop Eval I Summary Anesthesia Postop Eval I Summary: Anesthesia Postop Eval I: Assessment Summary Airway patent Yes 11/14/23 11:32 CORPORATE SAFETY COORDINATOR.CSIR Spontaneous unlabored Yes 11/14/23 11:32 CORPORATE SAFETY COORDINATOR.CSIR respirations Mental status nausea No 11/14/23 11:32 CORPORATE SAFETY COORDINATOR.CSIR Vomiting No 11/14/23 11:32 CORPORATE SAFETY COORDINATOR.CSIR Anesthesia Postop Eval I: Fluid Summary Crystalloid volume administer 800 11/14/23 11:32 CORPORATE SAFETY COORDINATOR.CSIR (ml) Colloids volume administered ( ml) Blood Product volume administered (ml) Total IV fluid infused 800 11/14/23 11:32 CORPORATE SAFETY COORDINATOR.CSIR Anesthesia Postop Eval I: Summary Notes Anesthesia Complication No 11/14/23 11:32 CORPORATE SAFETY COORDINATOR.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 11/14/23 1307 Date Jose Ornelas Signature: Date CC: Signed Normal [facility] Dexa Bone Density Studyon Dexa Bone Density Study [facility] Imaging Services [address] [place] [address] Dexa Bone Density Study MR#: [id number] Acct: [id number] Name: EZEKIEL KHALIL Rep #: [id number] : 1955 F 67 From: Cahs machado MD PCP: Dr. Doug Mcmullen DO Status: [facility] Study: Dexa Bone Density Study Date of Exam: 10/04/23 Exam# [id number] Ordering Dr: Doug Mcmullen DO [id number] STUDY: DUAL ENERGY X-RAY ABSORPTIOMETRY / DXA REASON FOR EXAM: Female, 67 years old. M810 TECHNIQUE: Bone Mineral Density (BMD) measurements of lumbar spine and bilateral hips were obtained. COMPARISON: Comparison is made with prior study August 18, 2021. FINDINGS: Lumbar Spine (L1-L4): g/cm2 (0.741) / T-score (-2.8) / Z-score (-0.7) Findings are suggestive of osteoporosis with a high fracture risk. Left Femur Total: g/cm2 (0.714) / T-score (-1.9) / Z-score (-0.4) Left Femoral Neck: g/cm2 (0.635) / T-score (-1.9) / Z-score (-0.1) Right Femur Total: g/cm2 (0.659) / T-score (-2.3) / Z-score (-0.8) Right Femoral Neck: g/cm2 (0.605) / T-score (-2.2) / Z-score (-0.4) The T-Scores on the most recent prior examination were: Lumbar Spine (L1-L4): There has been worsening of bone density since the previous examination. Left Femur Total: which represents an improvement of 0.5%. Right Femur Total: which represents a worsening of 6.4%. BD/Dexa Bone Density Study IMPRESSION: The patient is considered osteopenic as outlined below according to World Jimmy Organization (WHO) criteria with a high fracture risk. There has been worsening of bone density since the previous examination. Reference Information: The T-score is the number of standard deviations above or below the standard which is normal for young adults at their peak bone mineral density. The World Health Organization (WHO) interprets the T-scores as follows: Above -1 Normal bone density Between -1 and -2.5 Osteopenia Equal to / or below -2.5 Osteoporosis As a practical clinical guideline, osteopenia may be graded as follows: Mild -1 through -1.5 Moderate -1.6 through -2.0 Severe -2.1 through -2.4 The Z-score is the number of standard deviations above or below age-matched controls. A Z-score of less than -1.5 would be considered abnormal. References: 1. NIH Osteoporosis and Related Bone Diseases www osteo.org 2. International Society for Clinical Densitometry www iscd.org 3. National Osteoporosis Foundation www nof.org Electronically Signed: Cash Moreno MD at 8:47 EDT , CC: Dr. Doug Mcmullen, Healthcare Specialist: Signed Normal [facility] CBC W/Diff, Automatedon - Absolute Lymph 1.74 X10 3/uL Normal 0.83-4.51 [facility] Comment on above: Performed By: #### L 500.4050, L500.4100, L100.0100, L506.1000 #### [facility] [address] [place], [address] Absolute Neut 3.8 X10 3/uL Normal 2.0-7.7 [facility] Comment on above: Performed By: #### L 500.4050, L500.4100, L100.0100, L506.1000 #### [facility] [address] [place], [address] Basophils/100 WBC (Bld) 0.8 % Normal 0-[address] [facility] Comment on above: Performed By: #### L 500.4050, L500.4100, L100.0100, L506.1000 #### [facility] [address] [place], [address] Eosinophils/100 WBC (Bld) 5.0 % Normal 0-5 [facility] Comment on above: Performed By: #### L 500.4050, L500.4100, L100.0100, L506.1000 #### [facility] [address] [place], [address] Erythrocyte distribution width (RBC) [Ratio] 13.0 % Normal 11.6-14.6 [facility] Comment on above: Performed By: #### L 500.4050, L500.4100, L100.0100, L506.1000 #### [facility] [address] [place], [address] Hematocrit (Bld) [Volume fraction] 47.0 % Normal 37-47 [facility] Comment on above: Performed By: #### L 500.4050, L500.4100, L100.0100, L506.1000 #### [facility] [address] [place], [address] Hemoglobin (Bld) [Mass/Vol] 15.1 g/dL High 12.0-15.0 [facility] Comment on above: Performed By: #### L 500.4050, L500.4100, L100.0100, L506.1000 #### [facility] [address] [place], [address] IG% 0.200 Normal 0.0-0.9 [facility] Comment on above: Result Comment: IG% - Immature Granulocytes (promyelocytes, myelocytes and metamyelocytes) > 1% indicates that a LEFT SHIFT is Present. Performed By: #### L 500.4050, L500.4100, L100.0100, L506.1000 #### [facility] [address] [place], [address] Lymphocytes/100 WBC (Bld) 27.2 % Normal 19-41 [facility] Comment on above: Performed By: #### L 500.4050, L500.4100, L100.0100, L506.1000 #### [facility] [address] [place], [address] MCH (RBC) [Entitic mass] 28.5 pg Normal 27.0-32.0 [facility] Comment on above: Performed By: #### L 500.4050, L500.4100, L100.0100, L506.1000 #### [facility] [address] [place], [address] MCHC (RBC) [Mass/Vol] 32.1 g/dL Normal 32-[address] [facility] Comment on above: Performed By: #### L 500.4050, L500.4100, L100.0100, L506.1000 #### [facility] [address] [place], [address] MCV (RBC) [Entitic vol] 88.8 fL Normal 81-[address] [facility] Comment on above: Performed By: #### L 500.4050, L500.4100, L100.0100, L506.1000 #### [facility] [address] [place], [address] Monocytes/100 WBC (Bld) 7.0 % Normal 0-10 [facility] Comment on above: Performed By: #### L 500.4050, L500.4100, L100.0100, L506.1000 #### [facility] [address] [place], [address] Neutrophils/100 WBC (Bld) 59.8 % Normal 47-70 [facility] Comment on above: Performed By: #### L 500.4050, L500.4100, L100.0100, L506.1000 #### [facility] [address] [place], [address] Nucleated RBC (Bld) [#/Vol] 0 10*3/uL Normal 0-5 [facility] Comment on above: Performed By: #### L 500.4050, L500.4100, L100.0100, L506.1000 #### [facility] [address] [place], [address] Platelet mean volume (Bld) [Entitic vol] 11.0 fL Normal 6.2-12.0 [facility] Comment on above: Performed By: #### L 500.4050, L500.4100, L100.0100, L506.1000 #### [facility] [address] [place], [address] Platelets (Bld) [#/Vol] 230 10*3/uL Normal 150-450 [facility] Comment on above: Performed By: #### L 500.4050, L500.4100, L100.0100, L506.1000 #### [facility] [address] [place], [address] RBC (Bld) [#/Vol] 5.29 10*6/uL Normal 4.2-5.4 [facility] Comment on above: Performed By: #### L 500.4050, L500.4100, L100.0100, L506.1000 #### [facility] [address] [place], [address] RDW SD 42.4 fl Normal 35.1-43.9 [facility] Comment on above: Performed By: #### L 500.4050, L500.4100, L100.0100, L506.1000 #### [facility] [address] [place], [address] WBC (Bld) [#/Vol] 6.4 10*3/uL Normal 4.4-11.0 [facility] Comment on above: Performed By: #### L 500.4050, L500.4100, L100.0100, L506.1000 #### [facility] [address] [place], [address] Comprehensive Metabolic Prof [facility] 09-07-2023 Albumin [Mass/Vol] 3.9 g/dL Normal 3.2-5.0 [facility] Comment on above: Performed By: #### L 500.4050, L500.4100, L100.0100, L506.1000 #### [facility] [address] [place], [address] Albumin/Globulin [Mass ratio] 1.1 {ratio} Normal 0.9-2.4 [facility] Comment on above: Performed By: #### L 500.4050, L500.4100, L100.0100, L506.1000 #### [facility] [address] [place], [address] ALK P 99 U/L Normal 45-117 [facility] Comment on above: Performed By: #### L 500.4050, L500.4100, L100.0100, L506.1000 #### [facility] [address] [place], [address] ALT [Catalytic activity/Vol] 21 U/L Normal 13-56 [facility] Comment on above: Performed By: #### L 500.4050, L500.4100, L100.0100, L506.1000 #### [facility] [address] [place], [address] AST [Catalytic activity/Vol] 20 U/L Normal 15-37 [facility] Comment on above: Performed By: #### L 500.4050, L500.4100, L100.0100, L506.1000 #### [facility] [address] [place], [address] Bilirubin [Mass/Vol] 1.20 mg/dL High 0.20-1.00 [facility] Comment on above: Result Comment: For patients on eltrombopag therapy, use of Dimension [place] TBIL is not recommended. Performed By: #### L 500.4050, L500.4100, L100.0100, L506.1000 #### [facility] [address] [place], [address] BUN/CRE 12.1 RATIO Normal 10-20 [facility] Comment on above: Performed By: #### L 500.4050, L500.4100, L100.0100, L506.1000 #### [facility] [address] [place], [address] CA,Total 9.2 mg/dL Normal 8.5-10.1 [facility] Comment on above: Performed By: #### L 500.4050, L500.4100, L100.0100, L506.1000 #### [facility] [address] [place], [address] Chloride [Moles/Vol] 102 mmol/L Normal 98-107 [facility] Comment on above: Performed By: #### L 500.4050, L500.4100, L100.0100, L506.1000 #### [facility] [address] [place], [address] CO2 [Moles/Vol] 27.0 mmol/L Normal 21.0-32.0 [facility] Comment on above: Performed By: #### L 500.4050, L500.4100, L100.0100, L506.1000 #### [facility] [address] [place], [address] Creatinine [Mass/Vol] 0.74 mg/dL Normal 0.55-1.[address] [facility] Comment on above: Result Comment: The validity of the calculated GFR GFRAA in patients over 70 years has not been determined. Clinical correlation is essential. Performed By: #### L 500.4050, L500.4100, L100.0100, L506.1000 #### [facility] [address] [place], [address] EST GFR - AA 100 mL/min Normal >60 [facility] Comment on above: Result Comment: Afri can Ecuadorean GFR Calc Performed By: #### L 500.4050, L500.4100, L100.0100, L506.1000 #### [facility] [address] [place], [address] GAP 9 Normal 5-15 [facility] Comment on above: Performed By: #### L 500.4050, L500.4100, L100.0100, L506.1000 #### [facility] [address] [place], [address] GFR/1.73 sq M.predicted among non-blacks MDRD (S/P/Bld) [Vol rate/Area] 82 mL/min/{1.73_m2} Normal >60 [facility] Comment on above: Result Comment: Non- GFR Calc Performed By: #### L 500.4050, L500.4100, L100.0100, L506.1000 #### [facility] [address] [place], [address] Globulin (S) [Mass/Vol] 3.5 g/dL Normal 2.2-4.2 [facility] Comment on above: Performed By: #### L 500.4050, L500.4100, L100.0100, L506.1000 #### [facility] [address] [place], [address] Glucose [Mass/Vol] 108 mg/dL High 74-106 [facility] Comment on above: Result Comment: Fast ing Glucose result from 100 to 125 mg/dL suggests IMPAIRED HOMEOSTASIS per A.D.A. criteria. Performed By: #### L 500.4050, L500.4100, L100.0100, L506.1000 #### [facility] [address] [place], [address] Potassium [Moles/Vol] 3.7 mmol/L Normal 3.5-5.[address] [facility] Comment on above: Performed By: #### L 500.4050, L500.4100, L100.0100, L506.1000 #### [facility] [address] [place], [address] Sodium [Moles/Vol] 138 mmol/L Normal 136-145 [facility] Comment on above: Performed By: #### L 500.4050, L500.4100, L100.0100, L506.1000 #### [facility] [address] [place], [address] T PROT 7.4 g/dL Normal 6.4-8.2 [facility] Comment on above: Performed By: #### L 500.4050, L500.4100, L100.0100, L506.1000 #### [facility] [address] [place], [address] Urea nitrogen [Mass/Vol] 9 mg/dL Normal 7-18 [facility] Comment on above: Performed By: #### L 500.4050, L500.4100, L100.0100, L506.1000 #### [facility] [address] [place], [address] Lipid Profileon 09-07-2023 Cholesterol [Mass/Vol] 263 mg/dL High 200 [facility] Comment on above: Result Comment: <200 mg/dL Desirable 200-240 mg/dL Borderline >240 mg/dL High Risk Performed By: #### L 500.4050, L500.4100, L100.0100, L506.1000 #### [facility] [address] [place], [address] Cholesterol in HDL [Mass/Vol] 71 mg/dL Normal [facility] Comment on above: Result Comment: The drugs N-Acetylcysteine and Metamizole may falsely depress this assay. Reference Range HDL <40 mg/dL Low HDL Cholesterol HDL >or= 60 mg/dL High HDL Cholesterol Performed By: #### L 500.4050, L500.4100, L100.0100, L506.1000 #### [facility] [address] [place], [address] Cholesterol in LDL [Mass/Vol] 173 mg/dL High 0-130 [facility] Comment on above: Performed By: #### L 500.4050, L500.4100, L100.0100, L506.1000 #### [facility] [address] [place], [address] Cholesterol in VLDL [Mass/Vol] 19 mg/dL Normal 5-40 [facility] Comment on above: Performed By: #### L 500.4050, L500.4100, L100.0100, L506.1000 #### [facility] [address] [place], [address] Triglyceride [Mass/Vol] 95 mg/dL Normal [facility] Comment on above: Result Comment: The drugs N-Acetylcysteine and Metamizole may falsely depress this assay. Serum Triglycerides Reference Interval Normal <150 mg/dL Borderline high 150 - 199 mg/dL High 200 - 499 mg/dL Very High > or = 500 mg/dL Performed By: #### L 500.4050, L500.4100, L100.0100, L506.1000 #### [facility] [address] [place], [place], [id number] Vitamin D,25 Hydroxyon 09-06 Vitamin D 25-OH 41.6 ng/mL Normal [facility] Comment on above: Result Comment: Jessica min D 25(OH) Status Range Deficiency <20 ng/mL (50nmol/L) Insufficiency 20 - 30 ng/mL (50 - 75 nmol/L) Sufficiency 30 - 100 ng/mL (75 - 250 nmol/L) Toxicity >100 ng/mL (>250 nmol/L) Performed By: #### L 500.4050, L500.4100, L100.0100, L506.1000 #### [facility] [address] [place], [place], [id number] SCRN MAMM (CAD)W/HARRIET BILATo n 08-27-2023 SCRN MAMM (CAD)W/HARRIET BILAT [facility] [address] [place], [place] [address] SCRN MAMM (CAD)W/HARRIET BILAT MR#: [id number] Acct: [id number] Name: EZEKIEL KHALIL Rep #: [id number] : 1955 F 67 From: Cash machado MD PCP: Dr. Doug Mcmullen, DO Status: REG CLI Study: SCRN MAMM (CAD)W/HARRIET BILAT Date of Exam: 08/17 0 Exam# [id number] Ordering Dr: Irena Brunson NP JUNIOR SYSTEMS ANALYST -C [id number] MAMMOGRAPHY - BILATERAL SCREENING REASON FOR EXAM: Female, 67 years old. Routine annual screening examination. PERTINENT HISTORY: Aunt with breast cancer. Prior right stereotactic breast biopsy. TECHNIQUE: Digital bilateral breast harriet (3D mammographic acquisition) in the CC and MLO projections. 2-D mediolateral oblique (MLO) and craniocaudad (CC) views of both breasts were obtained. CAD: Full Field Digital Mammography with Computer Added Detection was performed. COMPARISON: Comparison is made with prior study dated August 21, 2022 and August 18, 2021. FINDINGS: Breast Composition: There are scattered areas of fibroglandular density. There are no dominant masses or suspicious calcifications. A tissue clip marker is seen in the central portion of the right breast. No other significant abnormalities are identified. There has been no significant change since the prior study. BI/SCRN MAMM (CAD)W/HARRIET BILAT IMPRESSION: Stable bilateral screening mammogram. Yearly follow-up mammogram recommended. (A) ASSESSMENT CATEGORY: BIRADS Category 2: Benign. A letter regarding these results will be sent to the patient by the facility within 30 days. Approximately 10% of breast cancers are not detected by mammography. A normal mammogram should not delay biopsy of a clinically suspicious abnormality. [id number] Electronically Signed: Cash Moreno MD at 11:13 EDT , CC: DEACON Brunson; Dr. Doug Mcmullen DO Healthcare Specialist: Signed Normal [facility] Absolute lymphocyte countOrd ered By: Dr. Mcmullen on 08-17-2022 Lymphocytes Auto (Unsp spec) [#/Vol] 1.69 10*3/uL 0.83-4.51 [facility] Basophil percentageOrdered B y: Dr. Mcmullen on 08-17-2022 Basophils/100 WBC (Bld) 1.2 % 0-1 [facility] Bilirubin [Mass/Vol] 0.90 mg/dL 0.20-1.00 [facility] Comment on above: For patients on eltr ombopag therapy, use of Dimension [place] TBIL is not recommended. Chloride [Moles/Vol] 102 mmol/L 98-107 [facility] Cholesterol [Mass/Vol] 259 mg/dL <200 [facility] Comment on above: <200 mg/dL Desirable 200-240 mg/dL Borderline >240 mg/dL High Risk Eosinophils/100 WBC (Bld) 5.2 % 0-5 [facility] Glucose [Mass/Vol] 108 mg/dL 74-106 [facility] Comment on above: Fasting Glucose resu lt from 100 to 125 mg/dL suggests IMPAIRED HOMEOSTASIS per A.D.A. criteria. Neutrophils (Bld) [#/Vol] 3.9 10*3/uL 2.0-7.7 [facility] Neutrophils/100 WBC (Bld) 59.3 % 47-70 [facility] Potassium [Moles/Vol] 4.0 mmol/L 3.5-5.[address] [facility] Protein [Mass/Vol] 7.1 g/dL 6.4-8.2 [facility] Sodium [Moles/Vol] 137 mmol/L 136-145 [facility] Triglyceride [Mass/Vol] 99 mg/dL <199 [facility] Comment on above: The drugs N-Acetylcy steine and Metamizole may falsely depress this assay.Serum Triglycerides Reference Interval Normal <150 mg/dL Borderline high 150 - 199 mg/dL High 200 - 499 mg/dL Very High > or = 500 mg/dL WBC (Bld) [#/Vol] 6.6 10*3/uL 4.4-11.0 [facility] Blood erythrocytes count (nu mber/volume)Ordered By: Dr. Mcmullen on 08-17-2022 RBC (Bld) [#/Vol] 5.10 10*6/uL 4.2-5.4 [facility] Blood hemoglobin measurement (mass/volume)Ordered By: Dr. Mcmullen on 08-17-2022 Hemoglobin (Bld) [Mass/Vol] 14.6 g/dL 12.0-15.0 [facility] Blood lymphocytes/100 leukoc ytesOrdered By: Dr. Mcmullen on 08-17-2022 Lymphocytes/100 WBC (Bld) 25.6 % 19-41 [facility] Blood monocytes/100 leukocyt esOrdered By: Dr. Mcmullen on 08-17-2022 Monocytes/100 WBC (Bld) 8.5 % 0-[address] [facility] Blood platelet mean volumeOr dered By: Dr. Mcmullen on 08-17-2022 Platelet mean volume (Bld) [Entitic vol] 10.5 fL 6.2-12.0 [facility] Determination of erythrocyte mean corpuscular volume (MCV)Ordered By: Dr. Mcmullen on 08-17-2022 MCV (RBC) [Entitic vol] 88.6 fL 81-99 [facility] Hematocrit Auto (Bld) [Volum e fraction]Ordered By: Dr. Mcmullen on 08-17-2022 Hematocrit (Bld) [Volume fraction] 45.2 % 37-47 [facility] - Chemistry and C hemistry - challengeOrdered By: Dr. Mcmullen on 08-17-2022 ALP [Catalytic activity/Vol] 93 U/L 45-117 [facility] ALT [Catalytic activity/Vol] 22 U/L 13-56 [facility] CO2 [Moles/Vol] 28.0 mmol/L 21.0-32.0 [facility] Globulin (S) [Mass/Vol] 3.4 g/dL 2.2-4.2 [facility] Urea nitrogen/Creatinine [Mass ratio] 16.5 mg/mg 10-20 [facility] - Hematology and Cell countsOrdered By: Dr. Mcmullen on 08-17-2022 Erythrocyte distribution width (RBC) [Entitic vol] 42.5 fL 35.1-43.9 [facility] Erythrocyte distribution width (RBC) [Ratio] 13.1 % 11.6-14.6 [facility] Immature granulocytes/100 WBC (Bld) 0.200 % 0.0-0.9 [facility] Comment on above: IG% - Immature Granu locytes (promyelocytes, myelocytes and metamyelocytes) > 1% indicates that a LEFT SHIFT is Present. MCH (RBC) [Entitic mass] 28.6 pg 27.0-32.0 [facility] Nucleated RBC/100 WBC (Bld) [Ratio] 0 % 0-5 [facility] MCHC Auto (RBC) [Mass/Vol]Or dered By: Dr. Mcmullen on 08-17-2022 MCHC (RBC) [Mass/Vol] 32.3 g/dL 32-[address] [facility] No Panel InformationOrdered By: Dr. Mcmullen on 08-17-2022 Estimated GFR (MDRD) Amer 102 mL/min >60 [facility] Comment on above: GFR Calc Estimated GFR (MDRD) Non-Af Amer 84 mL/min >60 [facility] Comment on above: Non- GFR Calc Platelets bldOrdered By: Dr. Mcmullen on 08-17-2022 Platelets (Bld) [#/Vol] 233 10*3/uL 150-450 [facility] Serum or plasma albumin jt urement (mass/volume)Ordered By: Dr. Mcmullen on 08-17-2022 Albumin [Mass/Vol] 3.7 g/dL 3.2-5.0 [facility] Serum or plasma albumin/glob ulin mass ratioOrdered By: Dr. Mcmullen on 08-17-2022 Albumin/Globulin [Mass ratio] 1.1 {ratio} 0.9-2.4 [facility] Serum or plasma calcium jt urement (mass/volume)Ordered By: Dr. Mcmullen on 08-17-2022 Calcium [Mass/Vol] 9.4 mg/dL 8.5-10.1 [facility] Serum or plasma cholesterol in HDL measurement (mass/volume)Ordered By: Dr. Mcmullen on 08-17-2022 Cholesterol in HDL [Mass/Vol] 71 mg/dL >40 [facility] Comment on above: The drugs N-Acetylcy steine and Metamizole may falsely depress this assay. Reference Range HDL <40 mg/dL Low HDL Cholesterol HDL >or= 60 mg/dL High HDL Cholesterol Serum or plasma cholesterol in VLDL measurement (mass/volume)Ordered By: Dr. Mcmullen on 08-17-2022 Cholesterol in VLDL [Mass/Vol] 20 mg/dL 5-40 [facility] Serum or plasma creatinine m easurement (mass/volume)Ordered By: Dr. Mcmullen on 08-17-2022 Creatinine [Mass/Vol] 0.73 mg/dL 0.55-1.[address] [facility] Comment on above: The validity of the calculated GFR & GFRAA in patients over 70 years has not been determined. Clinical correlation is essential. Serum or plasma low density lipoprotein (LDL) cholesterol measurement (mass/volume)Ordered By: Dr. Mcmullen on 08-17-2022 Cholesterol in LDL [Mass/Vol] 168 mg/dL 0-130 [facility] Serum or plasma urea nitroge n measurement (mass/volume)Ordered By: Dr. Mcmullen on 08-17-2022 Urea nitrogen [Mass/Vol] 12 mg/dL 7-18 [facility] Thin prep Papanicolaou smear with manual screeningOrdered By: Dr. Mcmullen on 08-17-2022 Thin prep Papanicolaou smear with manual screening 18 U/L 15-37 [facility] Thin prep Papanicolaou smear with manual screening 7 5-15 [facility] No Panel Informationon 02-06 Vitamin D 25-Hydroxy 46.8 ng/mL [facility] Work Phone: Comment on above: Vitamin D 25(OH) Sta tus Range Deficiency <20 ng/mL (50nmol/L) Insufficiency 20 - 30 ng/mL (50 - 75 nmol/L) Sufficiency 30 - 100 ng/mL (75 - 250 nmol/L) Toxicity >100 ng/mL (>250 nmol/L) Cervical or vagninal specime n microscopic examination by cytology stain (reported ason 01-26-2022 Cytology report Cyto stain Doc (Cvx/Vag) Comment . [facility] Work Phone: Comment on above: The Pap smear is a s creening test designed to aid in thedetection of premalignant and malignant conditions of theuterine cervix. It is not a diagnostic procedure andshould not be used as the sole means of detecting cervicalcancer. Both false-positive and false-negative reports dooccur. Detection in cervical specim en of any of human papilloma virus (HPV) 16, 18, 31, 33,on 01-26-2022 HPV 16+18+31+33+35+39+45+51 +52+56+58+59+66+68 DNA Probe+sig amp Ql (Cvx) Negative Negative [facility] Work Phone: Comment on above: This nucleic acid am plification test detects fourteen high-risk HPV types (16,18,31,33,35,39,45,51,52,56,58,59,66,68)without differentiation. Laboratory - Cytologyon 01-17 Armhole Baster Jumpbasting Cyto stain Nom (Cvx/Vag) [ID] Comment . [facility] Work Phone: Comment on above: Thien Buchanan totechnologist Laboratory - Miscellaneous t estson 01-26-2022 Service comment (Unsp spec) [Interp] Comment . [facility] Work Phone: Comment on above: This liquid based Th inPrep(R) pap test was screened withthe use of an image guided system. Service comment (Unsp spec) [Interp] . . [facility] Work Phone: Liquid-based cerv Pap + CT/G C by PARTHA w reflex to high-risk HPV for ASCUSon 01-26-2022 Cytology report Cyto stain.thin prep Doc (Cvx/Vag) Comment . [facility] Work Phone: Comment on above: Criteria not met, HP V Genotype not performed.Performed at: - [address] [id number] Director: Erin Grey MD, Phone: [phone] at: =[facility] Labco[address]zaMarietta Osteopathic [facility], [place] [id number] Director: Erin Grey MD, Phone: [phone] No Panel Informationon 01-26 Pathology report final diagnosis Narrative Comment . [facility] Work Phone: Comment on above: NEGATIVE FOR INTRAEP ITHELIAL LESION OR MALIGNANCY.CELLULAR CHANGES ASSOCIATED WITH ATROPHY ARE PRESENT. Absolute lymphocyte counton 08-29-2021 Lymphocytes Auto (Unsp spec) [#/Vol] 1.71 10*3/uL 0.83-4.51 [facility] Work Phone: Basophil percentageon 2021 Basophils/100 WBC (Bld) 0.9 % 0-[address] [facility] Work Phone: Bilirubin [Mass/Vol] 0.90 mg/dL 0.20-1.00 [facility] Work Phone: Comment on above: For patients on eltr ombopag therapy, use of Dimension [place] TBIL is not recommended. Chloride [Moles/Vol] 103 mmol/L 98-107 [facility] Work Phone: Cholesterol [Mass/Vol] 266 mg/dL <200 [facility] Work Phone: Comment on above: <200 mg/dL Desirable 200-240 mg/dL Borderline >240 mg/dL High Risk Eosinophils/100 WBC (Bld) 5.0 % 0-5 [facility] Work Phone: Glucose [Mass/Vol] 106 mg/dL 74-106 [facility] Work Phone: Comment on above: Fasting Glucose resu lt from 100 to 125 mg/dL suggests IMPAIRED HOMEOSTASIS per A.D.A. criteria. Neutrophils (Bld) [#/Vol] 3.3 10*3/uL 2.0-7.7 [facility] Work Phone: Neutrophils/100 WBC (Bld) 56.3 % 47-70 [facility] Work Phone: Potassium [Moles/Vol] 3.7 mmol/L 3.5-5.[address] [facility] Work Phone: Protein [Mass/Vol] 7.3 g/dL 6.4-8.2 [facility] Work Phone: Sodium [Moles/Vol] 137 mmol/L 136-145 [facility]: Triglyceride [Mass/Vol] 95 mg/dL <[address] [facility] Work Phone: Comment on above: The drugs N-Acetylcy steine and Metamizole may falsely depress this assay.Serum Triglycerides Reference Interval Normal <150 mg/dL Borderline high 150 - 199 mg/dL High 200 - 499 mg/dL Very High > or = 500 mg/dL WBC (Bld) [#/Vol] 5.8 10*3/uL 4.4-11.0 [facility] Work Phone: Blood erythrocytes count (nu mber/volume)on 08-29-2021 RBC (Bld) [#/Vol] 5.09 10*6/uL 4.2-5.4 [facility] Work [facility]: Blood hemoglobin measurement (mass/volume)on 08-29-2021 Hemoglobin (Bld) [Mass/Vol] 14.3 g/dL 12.0-15.0 [facility] Work Phone: Blood lymphocytes/100 leukoc yteson 08-29-2021 Lymphocytes/100 WBC (Bld) 29.6 % 19-41 [facility] Work Phone: Blood monocytes/100 leukocyt eson 08-29-2021 Monocytes/100 WBC (Bld) 8.0 % 0-[address] [facility] Work Phone: Blood platelet mean volumeon 08-29-2021 Platelet mean volume (Bld) [Entitic vol] 10.5 fL 6.2-12.0 [facility] Work Phone: Determination of erythrocyte mean corpuscular volume (MCV)on 08-29-2021 MCV (RBC) [Entitic vol] 87.8 fL 81-[address] [facility] Work Phone: Hematocrit Auto (Bld) [Volum e fraction]on 08-29-2021 Hematocrit (Bld) [Volume fraction] 44.7 % 37-47 [facility] Work Phone: Laboratory - Chemistry and C hemistry - challengeon 08-29-2021 ALP [Catalytic activity/Vol] 89 U/L 45-117 [facility] Work Phone: ALT [Catalytic activity/Vol] 22 U/L 13-56 [facility] Work Phone: CO2 [Moles/Vol] 31.0 mmol/L 21.0-32.0 [facility] Work Phone: Globulin (S) [Mass/Vol] 3.5 g/dL 2.2-4.[address] [facility] Work Phone: Urea nitrogen/Creatinine [Mass ratio] 12.5 mg/mg 10-20 [facility] Work Phone: Laboratory - Hematology and Cell countson 08-29-2021 Erythrocyte distribution width (RBC) [Entitic vol] 41.9 fL 35.1-43.9 [facility] Work Phone: Erythrocyte distribution width (RBC) [Ratio] 12.9 % 11.6-14.6 [facility] Work Phone: Immature granulocytes/100 WBC (Bld) 0.200 % 0.0-0.9 [facility] Work Phone: Comment on above: IG% - Immature Granu locytes (promyelocytes, myelocytes and metamyelocytes) > 1% indicates that a LEFT SHIFT is Present. MCH (RBC) [Entitic mass] 28.1 pg 27.0-32.0 [facility] Work Phone: Nucleated RBC/100 WBC (Bld) [Ratio] 0 % 0-5 [facility] Work Phone: MCHC Auto (RBC) [Mass/Vol]on 08-29-2021 MCHC (RBC) [Mass/Vol] 32.0 g/dL 32-36 [facility] Work [facility]: No Panel Informationon 08-29 Estimated GFR (MDRD) Amer 104 mL/min >60 [facility] Work Phone: Comment on above: GFR Calc Estimated GFR (MDRD) Non-Af Amer 86 mL/min >60 [facility] Work Phone: Comment on above: Non- GFR Calc Vitamin D 25-Hydroxy 39.9 ng/mL [facility] Work Phone: Comment on above: Vitamin D 25(OH) Sta tus Range Deficiency <20 ng/mL (50nmol/L) Insufficiency 20 - 30 ng/mL (50 - 75 nmol/L) Sufficiency 30 - 100 ng/mL (75 - 250 nmol/L) Toxicity >100 ng/mL (>250 nmol/L) Platelets bldon 08-29-2021 Platelets (Bld) [#/Vol] 232 10*3/uL 150-450 [facility] Work Phone: Serum or plasma albumin jt urement (mass/volume)on 08-29-2021 Albumin [Mass/Vol] 3.8 g/dL 3.2-5.0 [facility] Work Phone: Serum or plasma albumin/glob ulin mass ratioon 08-29-2021 Albumin/Globulin [Mass ratio] 1.1 {ratio} 0.9-2.4 [facility] Work Phone: Serum or plasma calcium jt urement (mass/volume)on 08-29-2021 Calcium [Mass/Vol] 9.1 mg/dL 8.5-10.1 [facility] Work Phone: Serum or plasma cholesterol in HDL measurement (mass/volume)on 08-29-2021 Cholesterol in HDL [Mass/Vol] 67 mg/dL >40 [facility] Work Phone: Comment on above: The drugs N-Acetylcy steine and Metamizole may falsely depress this assay. Reference Range HDL <40 mg/dL Low HDL Cholesterol HDL >or= 60 mg/dL High HDL Cholesterol Serum or plasma cholesterol in VLDL measurement (mass/volume)on 08-29-2021 Cholesterol in VLDL [Mass/Vol] 19 mg/dL 5-40 [facility] Work Phone: Serum or plasma creatinine m easurement (mass/volume)on 08-29-2021 Creatinine [Mass/Vol] 0.72 mg/dL 0.55-1.[address] [facility] Work Phone: Comment on above: The validity of the calculated GFR & GFRAA in patients over 70 years has not been determined. Clinical correlation is essential. Serum or plasma low density lipoprotein (LDL) cholesterol measurement (mass/volume)on 08-29-2021 Cholesterol in LDL [Mass/Vol] 180 mg/dL 0-130 [facility] Work Phone: Serum or plasma urea nitroge n measurement (mass/volume)on 08-29-2021 Urea nitrogen [Mass/Vol] 9 mg/dL 7-18 [facility] Work Phone: Thin prep Papanicolaou smear with manual screeningon 08-29-2021 Thin prep Papanicolaou smear with manual screening 20 U/L 15-37 [facility] Work Phone: Thin prep Papanicolaou smear with manual screening 3 5-15 [facility] Work Phone: Vital Signs Date Time Vital Sign Value Performing Clinician Faci lity 01-29-2023 08:15-0500 Body height 160.[address] Doug Mcmullen Work Phone: [facility] 01-29-2023 08:07-0500 Body mass index (BMI) [Ratio] 28.5 kg/m2 Dr. Doug Mcmullen Work Phone: [facility] 01-29-2023 08:07-0500 Body weight 73.[address] Doug Mcmullen Work Phone: [facility] 01-29-2023 08:07-0500 Diastolic blood pressure 84 mm[Hg] Dr. Doug Mcmullen Work Phone: [facility] 01-29-2023 08:07-0500 Systolic blood pressure 136 mm[Hg] Dr. Doug Mcmullen Work Phone: [facility] 01-26-2022 08:10-0500 Body height 160.[address] Doug Mcmullen Work Phone: [facility] Work Phone: 01-26-2022 08:04-0500 Body mass index (BMI) [Ratio] 28.5 kg/m2 Dr. Doug Mcmullen Work Phone: [facility] Work Phone: 01-26-2022 08:04-0500 Body weight 73.[address] Doug Mcmullen Work Phone: [facility] Work Phone: 01-26-2022 08:04-0500 Diastolic blood pressure 84 mm[Hg] Dr. Doug Mcmullen Work Phone: [facility] Work Phone: 01-26-2022 08:04-0500 Systolic blood pressure 142 mm[Hg] Dr. Doug Mcmullen Work Phone: [facility] Work Phone: Encounters Encounter Date Encounter Type Care Provider Facility Start: 08-27-2024 ambulatory Doug Mcmullen Facility: [facility] Start: 08-07-2024 End: 08-07-2024 ambulatory Doug [facility] Facility:[facility] Start: 07-03-2024 Non-patient / Non-visit Dr. Nicolás tamayo MD -[facility] Start: 07-03-2024 End: 07-03-[address] Doug Mcmullen DO Work Phone: [facility] Work Phone: Start: 07-03-2024 End: 07-03-2024 Patient encounter procedure Shoshana Slaughter JUNIOR SYSTEMS ANALYST-C -[facility] Work Phone: Start: 07-03-2024 End: 07-03-2024 Patient encounter procedure Shoshana Slaughter JUNIOR SYSTEMS ANALYST-C [facility] Work Phone: Start: 07-03-2024 End: 07-03-2024 ambulatory Doug [facility] Facility:[facility] Start: 07-03-2024 End: 07-03-2024 ambulatory Doug [facility] Facility:[facility] Start: 06-06-2024 End: 06-06-[address] Doug Mcmullen DO Work Phone: [facility] Work Phone: Start: 06-06-2024 End: 06-06-[address] Doug Mcmullen DO -Radiology, [place] Work Phone: Start: 06-06-2024 End: 06-06-2024 ambulatory Doug [facility] Facility:[facility] Start: 01-31-2024 Encounter for gynecological examination (general) (routine) with abnormal findings Irena Brunson NP [facility] Start: 01-31-2024 End: 01-31-2024 ambulatory [facility] Facility:[facility] Start: 01-31-2024 End: 01-31-2024 ambulatory [facility] Facility:[facility] Start: 12-28-2023 End: 12-28-2023 ambulatory [facility] Facility:[facility] Start: 11-14-2023 End: 11-14-2023 ambulatory [facility] Facility:[facility] Start: 10-04-2023 End: 10-04-2023 ambulatory [facility] Facility:[facility] Start: 09-25-2023 ambulatory Doug [facility] Facility: [facility] Start: 09-07-2023 End: 09-07-2023 ambulatory [facility] Facility:[facility] Start: 08-27-2023 End: 08-27-2023 ambulatory [facility] Facility:[facility] Start: 01-29-2023 End: 01-29-[address] Doug Mcmullen Work Phone: [facility] Work Phone: Start: 01-29-2023 End: 01-29-[address] Doug Mcmullen Work Phone: [facility]-Laboratory, Specimen Work Phone: Start: 01-29-2023 End: 01-29-[address] Doug Mcmullen Work Phone: [facility] Work Phone: Start: 09-20-2022 Non-patient / Non-visit Dr. Babak Mcmullen Work Phone: [facility] Start: 09-20-2022 End: 09-20-[address] Doug Mcmullen Work Phone: [facility] Work Phone: Start: 09-20-2022 End: 09-20-[address] Doug Mcmullen Work Phone: [facility]-Cardiovascula r Services Work Phone: Start: 09-07-2022 Non-patient / Non-visit Dr. Babak Mcmullen Work Phone: [facility] Start: 09-06-2022 End: 09-06-[address] Doug Mcmullen Work Phone: [facility] Work Phone: Start: 09-06-2022 End: 09-06-[address] Doug Mcmullen Work Phone: [facility]-Cat Scan, [facility] Start: 08-21-2022 End: 08-21-2022 Patient encounter procedure [facility]-Outpatient Breast Imaging Start: 08-17-2022 End: 08-17-2022 ambulatory [facility] Work Phone: Start: 08-17-2022 End: 08-17-2022 Patient encounter procedure [facility], [place] Start: 02-06-2022 End: 02-06-[address] Doug Mcmullen Work Phone: [facility] Work Phone: Start: 02-06-2022 End: 02-06-[address] Doug Mcmullen Work Phone: [facility] Start: 01-26-2022 End: 01-26-[address] Doug Mcmullen Work Phone: [facility] Work Phone: Start: 01-26-2022 End: 01-26-[address] Doug Mcmullen Work Phone: [facility] Spec[facility] Start: 01-26-2022 End: 01-26-[address] Doug Mcmullen Work Phone: [facility] Start: 08-29-2021 End: 08-29-2021 Patient encounter procedure [facility] Start: 08-18-2021 End: 08-18-2021 Patient encounter procedure [facility]Out[facility] Breast [facility] Procedures Date Procedure Procedure Detail Performing Clinician Start: 06-06-2024 Plain x-ray of pelvi s and lower extremity Dr. Doug Mcmullen DO Work Phone: Start: 09-06-2022 CT angiography of co ronary arteries Dr. Doug Mcmullen Work Phone: Start: 08-21-2022 Screening mammography Start: 08-18-2021 Dual energy X-ray absorptiometry Start: 08-18-2021 Screening mammography Plan of Treatment Date Care Activity Detail Author Start: 07-03-2024 Patient referral [facility] Work Phone: Start: 01-29-2023 Liquid based cervica l cytology screening [facility] Start: 02-06-2022 [facility] Work Phone: Start: 01-26-2022 Liquid based cervica l cytology screening [facility] Work Phone: Beta lipoprotein sub particle measurement [facility] Work Phone: Cholesterol [Mass/vo lume] in Serum or Plasma [facility] Work Phone: Cholesterol in HDL [ Mass/volume] in Serum or Plasma [facility] Work Phone: Lipoprotein.alpha [M oles/volume] in Serum or Plasma [facility] Work Phone: Lipoprotein.beta.sub particle.sma ll [Moles/volume] in Serum or Plasma [facility] Work Phone: MG Breast - bilateral Screening [facility] Work Phone: MG Breast - bilateral Screening [facility] Path report.final Dx Spec [facility] Work Phone: Path report.final Dx Spec [facility] Patient referral [facility] Work Phone: Triglyceride [Mass/v olume] in Serum or Plasma [facility] Work Phone: [facility] Payers Date Payer Category Payer Self-pay [id number] 2023 Unknown [id number] Medicare [id number] Private Health Insurance I [id number] Unknown [id number] Unknown [id number] Unknown [id number] 2.16.8 [id number] Unknown [id number] 2.16.8 [id number] Unknown [id number] 2.16.8 [id number] Unknown [id number] 2.16.8 [id number] Unknown [id number] 2.16.8 [id number] Unknown [id number] 2.16.8 [id number] Unknown [id number] 2.16.8 [id number] Unknown [id number] 2.16.8 [id number] Unknown [id number] 2.16.8 [id number] Unknown [id number] 2.16.8 [id number] Unknown [id number] 2.16.8 [id number] Unknown [id number] 2.16.8 [id number] Unknown [id number] 2.16.8 [id number] Unknown [id number] 2.16.8 [id number] Unknown [id number] 2.16.8 [id number] Social History Date Type Detail Facility Start: 01-24-2021 End: 01-29-2023 Tobacco smoking status NHIS Unknown if ever smoked [facility] Start: 09-30-2019 Non-smoker [facility] Start: 1955 Sex Assigned At Female W [facility] Start: 11-14-2023 Tobacco smoking stat us OKIS Never smoked tobacco (finding) [facility] Start: 06-13-2024 End: 07-04-2024 Sex Female (finding) [facility] Evaluation note 07-03-2024 Note Date & Type Note Facility 07-03-2024 Evaluation note Diagnosis Onset Date Resolution Hip pain, left acute June 8:34am Left groin pain acute June 8:34am Left leg swelling acute June 172024 8:34am [facility] Work Phone: Radiology Diagnostic study note 06-06-2024 Note Date & Type Note Facility 06-06-2024 Radiology Diagnostic study note [facility] Imaging Services [address] [place] [address] HIP, UNI W/ Pelvis 2-3 Views MR#: [id number] Acct: [id number] Name: EZEKIEL KHALIL Rep #: [id number] : 1955 F 68 From: Shayy Walsh MD PCP: Dr. Doug Mcmullen, DO Status: REG CLI Study:HIP, UNI W/ Pelvis 2-3 Views Date of Ex am: 06/06/24 Exam# [id number] Ordering Dr: Doug Mcmullen DO EXAM: XR Left Hip With Pelvis When Performed, 2 or 3 Views CLINICAL INDICATION: HIP AND LEG PAIN TECHNIQUE: Two or three views of the left hip with pelvis when performed. COMPARISON: No relevant prior studies available. FINDINGS: BONES/JOINTS: Unremarkable. No acute fracture. No dislocation. SOFT TISSUES: Unremarkable. RAD/HIP, UNI W/ Pelvis 2-3 Views IMPRESSION: Normal left hip x-rays. Reading Location: [facility] CC: Dr. Doug Mcmullen, ~ Healthcare Specialist: Signed [facility] Clinical Note 11-14-2023 Note Date & Type Note Facility 11-14-2023 Note [facility] Medical Records Department [address] [place] [address] History Physical Exam 11/14/23 0943 MR#: [id number] Acct: [id number] Name: EZEKIEL KHALIL Rep #: [id number] : 1955 67 From: Abigail Price MD PCP: Dr. Doug Mcmullen, DO Status:REG [facility] Location: [place] [address] HPI - General General Date of Service: 11/14/23 HPI Narrative EZEKIEL KHALIL, is a 67 F who presents for screening colonoscopy due to history of colon polyps. Patient last colonoscopy was 09/2019. Patient's mother did have colon cancer in her early 60s. Patient has bowel movements daily to every other day denies any blood. Patient denies any chronic abdominal pain/nausea/vomiting/reflux. REPLACED BY [facility] Medical History (Updated 11/14/23 @ 09:[address] Abigail Price MD) Wears glasses Post-menopausal Anxiety Arthritis Injury of head and neck Non-smoker Normal stress echocardiogram Hyperlipidemia CAD (coronary artery disease) Personal history of colonic polyps Osteopenia Skull fracture Hypertension Home Medications ???Medication ???Instructions ???Recorded ???Last Taken ???Type cholecalciferol (vitamin D3) 25 1,000 unit PO DAILY 10/09/16 Unknown History mcg (1,000 unit) capsule metoprolol succinate 50 mg 50 mg PO DAILY 10/09/16 11/14/23 History tablet,extended release 24 hr Allergy/AdvReac Type Severity Reaction Status Date / Time Penicillins (PCN) Allergy Swelling Verified 11/14/23 09:14 Sulfa (Sulfonamide Allergy Rash Verified 11/14/23 09:14 Antibiotics) rosuvastatin AdvReac Cognitive Verified 11/14/23 09:14 dysfunction, constipation Family History Father Heart disease Brother Myocardial infarction Parkinsons disease Mother Colon cancer Grandmother CVA (cerebral vascular accident) Surgical History Hx of right breast biopsy History of colonoscopy left wrist surgery Social History household members: spouse current occupational status: retired Smoking Status: Never smoker alcohol intake: never substance use type: does not use caffeine: Yes what type of physical activity do you participate in: walking and weight training frequency: daily seatbelt use: always do you feel safe at home: Yes additional social history: [employer] retired Past Medical/Surgical History Planned Operation Planned Operative Procedure(s): COLONOSCOPY-OA S.O.S: No Previous Hospitalizations/Surgeries HX Hospitalizations: No HX of Surgeries: COLONOSCOPY ORIF L WRIST 10/02 BREAST BX Any Problems With Anesthesia: Yes (NAUSEA, FELT LIKE PASSING OUT) You/Your Family Experience Fever (Hyperthermia) With Anes: No Cholinesterase deficiency: No Cardiovascular Hx Chest Pain within Last 2 months: No Hx of Irregular Heartbeat and/or Afib: No Hx Heart Attack: No Hx Congestive Heart Failure: No Hx Rheumatic Fever: No Hx Hypertension: Yes (STATES CONTROLLED WITH MEDS) Hx Internal Defibrillator: No Hx Pacemaker: No Hx Cardiac Catheterization: No Hx Cardiac Surgery/Stents/Etc.: No Hx Stress Test: Yes (STRESS TEST 10 YRS AGO. STATES NEG) Hx Pain in Legs when Walking/Leg Cramps: No Respiratory Chronic Cough: No (SINUS DRAINAGE) HX of Shortness of Breath: No Hoarseness: No Hx Chronic Obstructive Pulmonary Disease (COPD): No Hx Asthma: No Hx Emphysema: No Hx Sleep Apnea: No Hx Respiratory Tract Infection/Cold (presently): No Do You Snore Loudly (louder than talking or can be heard): No Do You Often Feel Tired/ Fatigued/ Sleepy Dring Daytime?: No Has Anyone Observed You Stop Breathing During Sleep?: No Result (for STOP score): Negative Hx Smoking: No Smoking Status: Never smoker Gastrointestinal Hx Gastrointestinal Disorders: No Hx Gastrointestinal Bleed: No Hx Ulcer: No Hx Hiatal Hernia: No Difficulty Chewing/Swallowing: No Special diet followed at home: No Hx Unplanned Weight Loss of 20#: No HX Unplanned Weight Gain of 20#: No Neurological Hx Seizures: No HX Syncope/Blackout Spells/Unconsciousness: Yes (WITH COLONOSCOPY) Hx Transient Ischemic Attacks (TIA): No Hx Multiple Sclerosis: No Hx Parkinson's Disease: No Hx Head/Neck Injury: Yes (CHILDHOOD HAIRLINE FX) Hx Headaches: No Hx Back Injury/Pain: No Recent Onset of Speech Difficulty: No Restless Legs: No Does patient have nerve stimulator: No Blood Disorder Hx Leukemia: No Bleeding Tendencies: No Hx Deep Vein Thrombosis: No Hx High Cholesterol: No Blood Transmitted Disease: No Hx Hepatitis: No Hx Cirrhosis: No Hx Anemia: No Hx Blood Disorders: No Reproduction : No Is Patient Lactating: No Hx Hysterectomy: No Hx Tubal Ligation: No Are You Post Menopause: Yes Genitourinary Hx (more content not included)... [facility] Clinical Note 01-26-2022 Note Date & Type Note Facility 01-26-2022 Note [facility] Work Phone: Pap Smear Specimen Adequacy January 26, 2022 9:18am Comment . Satisfactory for evaluation. Endocervical and/or squamous metaplasticcells (endocervical component) are present. Comment on above: Satisfactory for sid luation. Endocervical and/or squamous metaplasticcells (endocervical component) are present. 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, unknown acute Osteopenia acute Encounter for routine gyneco logical examination noneactive [facility] Work Phone: Hospital Discharge instructions Note Date & Type Note Facility Hospital Discharge instructions Ambulatory OrdersPhysical Therapy Referral Location: None Selected [facility] Work Phone: Reason for referral (narrative) Note Date & Type Note Facility Reason for referral (narrative) No reason for referral information available [facility] Work Phone: Chief Complaint and Reason for Visit Chief Complaint SCREENING 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) Reason for Visit Atrophic vaginitis 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, unknown Osteopenia Encounter for routine gynecological examination Chief Complaint SCREENING HTN HTN Chief Complaint SCREENING HTN HTN Atherosclerotic heart disease of [place] coronary a 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) PAP Reason for Visit Atrophic vaginitis TSESA exposure in utero, unknown Osteopenia Encounter for routine gynecological examination Chief Complaint Admit Date LEFT HIP June 06, 2024 2:5 0pm Chief Complaint Admit Date LEFT HIP June 06, 2024 2:5 0pm LEFT LEG/HIP July 03, 2024 8:3 4am M79.89 Other specified soft tissue disor ders July 03, 2024 10:23am Reason for Visit Admit Date Hip pain, left July 03, 2024 8:3 4am Left groin pain July 03, 2024 8:3 4am Left leg swelling July 03, 2024 8:3 4am Family History No Family History Records Found Relationship Condition Age at Onset Recorded Date/T savage father Cardiac disease Unknown brother Myocardial infarction Unknown Parkinson's disease Unknown mother Malignant neoplasm of colon Unknown grandmother Cerebrovascular accident (CVA) Unknown Advance Directives No Advanced Directives Records Found Advance Directive Response Recorded Date/ Time Living Will No September 30, 2019 3:53pm Power of Oil Dispenser No September 29 0 3:53pm Advance Directive Response Recorded Date/ Time Living Will No September 30, 2019 2:53pm Power of Oil Dispenser No September 29 0 2:53pm Summary Purpose Additional Source Comments Goals (unrecognized section and content) Goals may be documented in a n alternate sectionGoals may be documented in an alternate sectionGoals may be documented in an alternate sectionGoals may be documented in an alternate sectionGoals may be documented in an alternate sectionGoals may be documented in an alternate sectionGoals may be documented in an alternate sectionGoals may be documented in an alternate sectionGoals may be documented in an alternate section Care Teams (unrecognized sec tion and content) Team Status: Active Member Role Status Dates Dr. Doug Mcmullen DO Family Provider Active Dr. Doug Mcmullen DO Primary Care Provider Active Team Status: Active Member Role Status Dates Irena Brunson JUNIOR SYSTEMS ANALYST, JUNIOR SYSTEMS ANALYST-C Attending Provider, Referring Provider Active Dr. Doug Mcmullen DO Primary Care Provider Active Team Status: Inactive Member Role Status Dates Dr. Doug Mcmullen DO Primary Care Prov ider, Attending Provider, Referring Provider Active Team Status: Active Member Role Status Dates Dr. Doug Mcmullen DO Primary Care Prov ider, Referring Provider, Other Provider Active Dr. Shubham Fernandez MD Attending Provider Active Team Status: Inactive Member Role Status Dates Irena Brunson JUNIOR SYSTEMS ANALYST, JUNIOR SYSTEMS ANALYST-C Attending Provider, Referring Provider Active Dr. Doug Mcmullen DO Primary Care Provider Active Team Status: Active Member Role Status Dates Dr. Doug Mcmullen DO Primary Care Provider Active Dr. Shubham Fernandez MD Attending Provider Active Team Status: Inactive Member Role Status Dates Dr. Doug Mcmullen DO Primary Care Provider, Referrin g Provider Active Irena Brunson JUNIOR SYSTEMS ANALYST, JUNIOR SYSTEMS ANALYST-C Attending Provider Active Team Status: Inactive Member Role Status Dates Dr. Doug Mcmullen DO Primary Care Provider Active Irena Brunson JUNIOR SYSTEMS ANALYST, JUNIOR SYSTEMS ANALYST-C Attending Provider, Referring Provider Active Team Status: Inactive Member Role Status Dates Dr. Doug Mcmullen DO Primary Care Provider Active Start: June 06, 2024 End: June 06, 2024 Dr. Doug Mcmullen DO Attending Provider Active Start: June 06, 2024 End: June 06, 2024 Dr. Doug Mcmullen DO Referring Provider Active Start: June 06, 2024 End: June 06, 2024 Team Status: Active Member Role Status Dates Dr. Doug Mcmullen DO Primary Care Provider Active Team Status: Inactive Member Role Status Dates Dr. Doug Mcmullen DO Primary Care Provider Active Start: July 03, 2024 End: July 03, 2024 Dr. Doug Mcmullen DO Referring Provider Active Start: July 03, 2024 End: July 03, 2024 DEACON Hatfield Attending Provider Active Start: July 03, 2024 End: July 03, 2024 Team Status: Inactive Member Role Status Dates Dr. Doug Mcmullen DO Primary Care Provider Active Start: July 03, 2024 End: July 03, 2024 DEACON Hatfield Attending Provider Active Start: July 03, 2024 End: July 03, 2024 DEACON Hatfield Referring Provider Active Start: July 03, 2024 End: July 03, 2024 Team Status: Active Member Role Status Dates Dr. Doug Mcmullen DO Primary Care Provider Active Start: July 03, 2024 Dr. Nicolás Velasco MD Attending Provider Active S tart: July 03, 2024 INFORMATION SOURCE (unrecogn ized section and content) DATE CREATED AUTHOR 08/26/2024 [facility] FOR RECORDS PERTAINING TO PATIENTS WHO ARE OR HAVE BEEN ENROLLED IN A CHEMICAL DEPENDENCY/SUBSTANCEABUSE PROGRAM, SOME INFORMATION MAY BE OMITTED. This clinical summary was aggregated from multiple sources. Caution should be exercised in using it in the provision of clinical care. This summary normalizes information from multiple sources, and as a consequence, information in this document may materially change the coding, format and clinical context of patient data. In addition, data may be omitted in some cases. CLINICAL DECISIONS SHOULD BE BASED ON THE PRIMARY CLINICAL RECORDS. [employer] provides no warranty or guarantee of the accuracy or completeness of information in this document.
== END | disposition home or self-care (01) ==
LOC: OPBI 07:14
PROVIDERS: PCP Family Medicine; Referring Provider Nurse Practitioner Women's Health; Visit Provider Nurse Practitioner Women's Health
DX: Z12.31 Encounter for screening mammogram for malignant neoplasm of breast (principal)
CPT/HCPCS: 77063; 77067

== ENCOUNTER → 2025-01-16 | Outpatient (CLI) | payer MEDICARE, SELFPAY ==
[2025-01-16 12:21] LABS: Hematocrit 44.1 % (37-47); Hemoglobin 14.7 g/dL (12.0-15.0); Immature Granulocytes Count 0.010 X10^3/uL (0.0-0.0); Mean Corp Hgb Conc 33.3 g/dL (32-36); Mean Corpuscular Volume 87.5 fL (81-99); Mean Platelet Vol. 10.5 fl (6.2-12.0); NRBC Flagged by Analyzer 0 % (0-5); Platelet Count 258 K/mm3 (150-450); RBC Distribution Width CV 13.2 % (11.6-14.6); RBC Distribution Width SD 42.4 fl (35.1-43.9); Red Blood Count 5.04 M/mm3 (4.2-5.4); White Blood Count 6.7 K/mm3 (4.4-11.0)
[2025-01-16 13:11] LABS: AST(SGOT) 21 U/L (<=31); Alanine Aminotransfer ALT/SGPT 14 U/L (<=34); Albumin, Serum 4.2 g/dL (3.4-4.8); Alkaline Phosphatase 91 U/L (35-104); Anion Gap 10 (5-15); BUN 11 mg/dL (4-19); BUN/Creat Ratio 15.3 RATIO (10-20); Calcium,Total 9.7 mg/dL (7.6-11.0); Carbon Dioxide 27.9 mmol/L (21.0-32.0); Chloride 104 mmol/L (98-108); Cholesterol 240 mg/dL (<=200); Globulin 2.8 g/dL (2.2-4.2); Glucose 109 mg/dL (70-99); Low Density Lipoprotein Calc. 158 mg/dL; Potassium 4.7 mmol/L (3.3-5.1); Triglycerides 99 mg/dL; Very Low Density Lipoprotein 20 mg/dL (5-40); Vitamin D,25 Hydroxy 43.4 ng/mL (30-100); cholesterol:hdl ratio screen 3.70
== END | disposition home or self-care (01) ==
LOC: MTLAB 09:36
PROVIDERS: PCP Family Medicine; Referring Provider Family Medicine; Visit Provider Family Medicine
DX: I25.10 Atherosclerotic heart disease of native coronary artery without angina pectoris (principal); I10 Essential (primary) hypertension; M81.0 Age-related osteoporosis without current pathological fracture
CPT/HCPCS: 36415; 80053; 80061; 82306; 85025

== ENCOUNTER → 2025-02-02 | Outpatient (CLI) | payer MEDICARE, SELFPAY | END | disposition home or self-care (01) | PROVIDERS: PCP Family Medicine; Visit Provider Nurse Practitioner Women's Health | DX: Z12.4 Encounter for screening for malignant neoplasm of cervix (principal); Z91.89 Other specified personal risk factors, not elsewhere classified | CPT/HCPCS: 88175; G0145 ==